=== PATIENT | male | born 1940 | race Caucasian/White ===

== ENCOUNTER 2016-05-29 08:38 | Day surgery (SDC) | payer MEDICARE ==
[~2016-05-29] VITALS: Ht 172.7 cm; Wt 72.7 kg
[~2016-05-29 08:38] MED LIST: AMIO200T PO; COMMODE 3-IN-11 MIS; COUM1TAB PO; CYCL1TAB29 PO; DOCU1CAP39 PO; LIDO5DIS35 TD; LIPI40TA PO; MEGE40SU PO; METO25TA3 PO; OXYC-392 PO; PANT40TA3 PO; POLY17S PO; SENN1TAB PO; TERA1CAP3 PO; THERM PO; WHEEMIS3; [UNRECOGNIZED DRUG - CODE]
[2016-05-29 08:54] VITALS: BP 152/77; PULSE 77; RESP 20; TEMP 98.2; O2SAT 93
[2016-05-29] MEDS ORDERED: SODIUM CHLORIDE 0.9% 1000 ML IV SCH (09:15)
[2016-05-29] MEDS ORDERED: LEVOFLOXACIN 500 MG PREMIX 100 ML - biliary drainage catheter/stent insertion IV SCH (09:15)
[2016-05-29 10:30] VITALS: BP 139/75; PULSE 76; RESP 16; TEMP 98.7; O2SAT 96
--- NOTE | 2016-05-29 10:43 | PD.RAD ---
Post Procedure Progress Note Pre Procedure Diagnosis: (1) Cholecystostomy tube dysfunction Post Procedure Diagnosis: (1) Cholecystostomy tube dysfunction Procedure Date: May 29, 2016 Supervising Radiologist: Kobi Su Proceduralist/Assist: Mena Medeiros, RT(R), Rose Carpenter RT(R)() Anesthesia: Local Plan of Activity Patient to Unit: [facility] Patient Condition: Fair See PACS Report for procedural detail/treatment Imaging Evaluation Other Findings: Cholecystostomy catheter evaluated. Contrast opacifies an irregular contracted GB. Pericholecystic leakage on contrast occurred. No flow into cystic duct. Treatment Area: Dr. Ordoñez notified. Antibiotics will be called in for patient. Kobi Su MD May 29, 2016 10:43
[2016-05-29 10:45] VITALS: BP 135/72; PULSE 75; RESP 16; O2SAT 96
[2016-05-29] MEDS ORDERED: IOHEXOL 350 MG/ML 50 ML BTL (for RAD DIAG) ONE (10:52)
[2016-05-29 11:15] VITALS: BP 143/76; PULSE 75; RESP 16; O2SAT 96
[2016-05-29 11:45] VITALS: BP 151/81; PULSE 72; RESP 16; O2SAT 96
--- NOTE | 2016-05-29 13:30 | RADRPT ---
EXAM DATE/TIME: 05/29/2016 09:57 [place] COMPARISON: No previous studies available for comparison. INDICATIONS : Patient with cholecystitis in need of evaluation and possible change of a cholecystostomy tube. MEDICAL HISTORY : History of bladder stones, renal stones, groin mass, anemia, thrombocytopenia, CAD, gout, DVT, PE, HT N, AFIB, hyperlipidemia, GERD. SURGICAL HISTORY : History of IVC filter placement, CABG, aortic valve replacement, right knee replacement, left hip bon e spur removal, duodenal pump removal. ENCOUNTER: Subsequent ACUITY: 3 months PAIN SCORE: 0/10 FLUORO TIME: 4.1 minutes CONTRAST: 15 cc Omnipaque (iohexol) 350 DEVICE: 1.) 7 [place] 20cm Skater locking pigtail PROCEDURE : 1. Fluoroscopically guided tube exchange. 2. Conscious sedation with continuous EKG and oximetry monitoring. The risks, benefits and alternatives to the procedure were explained and verbal and written consent w as obtained. The site was prepped in sterile fashion. Full sterile technique was used, including ca p, mask, sterile gloves and gown and a large sterile sheet. Hand hygiene and 2% chlorhexidine and/or betadine/alcohol prep was utilized per protocol for cutaneous antisepsis. An existing cholecystostomy tube was evaluated with contrast injection. Contrast penetrates a contrac kehinde gallbladder with a markedly irregular wall. The pigtail was coiled in the fundus of the gallbladd er. Additional administration of contrast in attempt to fill the cystic duct resulted in leakage of c ontrast on the gallbladder. Exam was terminated at that point. With fluoroscopic guidance the previously placed tube was exchanged for a new catheter catheter. Pos t procedure image demonstrates satisfactory position of the tube. The catheter was sutured in place and a Percu-Stay was applied. Conscious sedation was performed with the prescribed dosages and duration as above. The patient tole rated the procedure well and there were no complications. EKG and oximetry remained stable throughou t the procedure. The patient was sent to post anesthesia recovery in stable condition. CONCLUSION: Patency of cystic duct could not be confirmed. Contracted markedly irregular gallbladder. Uncomplicated tube exchange as above. Kobi Su MD on May 29, 2016 at 13:23 Board Certified Radiologist. This report was verified electronically.
== END 2016-05-29 12:30 | disposition home or self-care (01) ==
LOC: HROP 08:38 → HRIP 08:38 → HROP 12:30
PROVIDERS: ATTEND Surgery Trauma Surgery
DX: T83.030A Leakage of cystostomy catheter, initial encounter (principal); K81.9 Cholecystitis, unspecified; K21.9 Gastro-esophageal reflux disease without esophagitis; I25.10 Atherosclerotic heart disease of native coronary artery without angina pectoris; I10 Essential (primary) hypertension; M10.9 Gout, unspecified; I48.91 Unspecified atrial fibrillation; Z87.442 Personal history of urinary calculi; Z86.718 Personal history of other venous thrombosis and embolism; Z95.1 Presence of aortocoronary bypass graft
CPT/HCPCS: 49423; 75984; 75989; C1729; C1769; Q9967

== ENCOUNTER 2016-06-22 06:06 | Observation (INO) | payer MEDICARE ==
[~2016-06-22] VITALS: Ht 172.7 cm; Wt 75.9 kg
[~2016-06-22 06:06] MED LIST changes: -CYCL1TAB29 PO; -LIDO5DIS35 TD; -MEGE40SU PO; -OXYC-392 PO
[2016-06-22] MEDS ORDERED: ACETAMINOPHEN 1000 MG/100 ML VIAL IV SCH (06:45)
[2016-06-22] MEDS ORDERED: METOPROLOL TARTRATE 25 MG TAB PO PRN (06:45)
[2016-06-22] MEDS ORDERED: INSULIN HUMAN REGULAR 1,000 UNITS/10 ML VIAL SQ PRN (06:45)
[2016-06-22] MEDS ORDERED: LACTATED RINGER'S 1000 ML IV SCH (06:45)
[2016-06-22] MEDS ORDERED: VANCOMYCIN HCL 1000 MG ON-CALL/NS 250 ML IV SCH ×2 (06:45)
[2016-06-22] MEDS ORDERED: SODIUM CHLORID 0.9% 500 ML IV SCH (06:45)
[2016-06-22] MEDS ORDERED: ACET1CAP18 PO (07:20)
[2016-06-22] MEDS ORDERED: OCUVTAB PO (07:20)
[2016-06-22] MEDS ORDERED: BUPIVACAINE/EPINEPHRINE 0.25% PF 30 ML VIAL ONE (07:24)
[2016-06-22] MEDS ORDERED: CYCL1TAB29 PO (07:25)
[2016-06-22 07:33] VITALS: BP 167/91; PULSE 79; RESP 22; TEMP 97.6; O2SAT 100
[2016-06-22 07:49] LABS: BICARBONATE 25.6 MEQ/L (21.0-32.0)
[2016-06-22 07:52] LABS: INDIRECT BILIRUBIN 0.3 MG/DL (0.0-0.8); TOTAL BILIRUBIN ADULT 0.4 MG/DL (0.2-1.0)
[2016-06-22] MEDS ORDERED: FAMOTIDINE 20 MG/2 ML VIAL ONE (08:07)
[2016-06-22] MEDS ORDERED: fentaNYL CITRATE 250 MCG/5 ML AMP ONE (08:08)
[2016-06-22] MEDS ORDERED: MIDAZOLAM HCL 2 MG/2 ML VIAL ONE (08:08)
[2016-06-22] MEDS ORDERED: ONDANSETRON HCL 4 MG/2 ML VIAL ONE (08:08)
[2016-06-22] MEDS ORDERED: LEVOFLOXACIN 500 MG PREMIX INJ 100 ML IV ONE (08:55)
[2016-06-22] MEDS ORDERED: NEOMYCIN/POLYMYXIN/BACITRACIN OINT 15 GM TUBE ONE (10:53)
--- NOTE | 2016-06-22 11:08 | HHI.PR ---
cc: Tony Ordoñez MD Immediate Post Op Note Procedure Date: Jun 22, 2016 Pre Op Diagnosis: Acute cholecystitis with previous cholangitis Post Op Diagnosis: Same Surgeon: Tony Ordoñez Suit Attendant(s): Bertin Matthews MS3 Procedure: Laparoscopic lysis of adhesions Laparoscopic cholecystectomy Primary repair umbilical hernia Findings: Adhesions from previous surgery Complications: None Specimen(s) removed: Gallbladder to pathology Estimated blood loss: 75 ml Anesthesia: General Drains: None IVF (750 ml) Patient to: PACU Patient Condition: Good Date/Time of Procedure: SEE SURGICAL CARE RECORD Tony Ordoñez MD Jun 22, 2016 11:08
[2016-06-22] MEDS ORDERED: HYDR-3288 PO (11:12)
[2016-06-22] MEDS ORDERED: *morphine SULFATE 8 MG/ML PERIprocedure ONLY ONE ×2 (11:17→11:37)
[2016-06-22] MEDS ORDERED: DEXTROSE 50% IN WATER 50 ML VIAL(D50) IV PUSH PRN (11:30)
[2016-06-22] MEDS ORDERED: GLUCAGON 1 MG/ML VIAL OTHER PRN (11:30)
[2016-06-22] MEDS ORDERED: INSULIN ASPART SUPPLEMENTAL SCALE ONE (11:40)
[2016-06-22] MEDS: LACTATED RINGER'S 1000 ML IV SCH ×2 (12:15→21:32)
[2016-06-22] MEDS ORDERED: DO NOT ADM ANY ANTICOAGULANT DRUGS XX PRN (12:15)
[2016-06-22] MEDS ORDERED: ONDANSETRON HCL 4 MG/2 ML VIAL IV PUSH PRN (12:45)
[2016-06-22] MEDS ORDERED: MORPHINE SULFATE 4 MG/ML INJ IV PRN (12:45)
[2016-06-22] MEDS ORDERED: ACETAMINOPHEN/HYDROcodone 325 MG/7.5 MG TAB PO PRN (12:45)
[2016-06-22] MEDS ORDERED: PHENYLEPH/NS 1000 MCG/10 ML SYR IV ONE (15:09)
[2016-06-22] MEDS ORDERED: NEOSTIGMINE 3 MG/3 ML SYR IV ONE (15:09)
[2016-06-22] MEDS ORDERED: ePHEDrine/NS 25 MG/5 ML SYR IV ONE (15:09)
[2016-06-22] MEDS ORDERED: PROPOFOL 200 MG/20 ML AMP IV ONE (15:09)
[2016-06-22 16:00] VITALS: BP 149/74; PULSE 88; RESP 17; TEMP 95.1; O2SAT 95
[2016-06-22] MEDS ORDERED: INSULIN ASPART SUPPLEMENTAL SCALE SQ SCH (16:00)
[2016-06-22 20:00] VITALS: BP 166/80; PULSE 81; RESP 17; TEMP 96.4; O2SAT 98
[2016-06-22] MEDS ORDERED: TERAZOSIN HCL 1 MG CAP PO SCH (21:00)
[2016-06-22] MEDS ORDERED: DOCUSATE SODIUM 50 MG/SENNA 8.6 MG TAB PO SCH (21:00)
[2016-06-22] MEDS ORDERED: ATORVASTATIN 40 MG TAB PO SCH (21:00)
[2016-06-22] MEDS ORDERED: CYCLOBENZAPRINE HCL 10 MG TAB PO SCH (21:00)
[2016-06-22] MEDS: PANTOPRAZOLE SOD 40 MG DELAYED RELEASE TAB PO SCH (21:26)
[2016-06-22] MEDS: METOPROLOL TARTRATE 25 MG TAB PO SCH (21:26)
[2016-06-22] MEDS: ENOXAPARIN SODIUM 80 MG/0.8 ML SYRINGE SQ SCH (21:26)
[2016-06-22] MEDS: ACETAMINOPHEN/HYDROcodone 325 MG/7.5 MG TAB PO PRN (22:53)
[2016-06-23] VITALS: BP 139/72; PULSE 74; RESP 17; TEMP 97.8; O2SAT 97
[2016-06-23] MEDS: ACETAMINOPHEN/HYDROcodone 325 MG/7.5 MG TAB PO PRN ×2 (06:12→13:31)
[2016-06-23 08:00] VITALS: BP 143/67; PULSE 60; RESP 18; TEMP 97; O2SAT 91
[2016-06-23] MEDS: PANTOPRAZOLE SOD 40 MG DELAYED RELEASE TAB PO SCH (08:43)
[2016-06-23] MEDS: ENOXAPARIN SODIUM 80 MG/0.8 ML SYRINGE SQ SCH (08:43)
[2016-06-23] MEDS: METOPROLOL TARTRATE 25 MG TAB PO SCH (08:43)
[2016-06-23] MEDS ORDERED: MULTIVITAMINS/MINERALS THERAPEUTIC TAB PO SCH (09:00)
[2016-06-23] MEDS ORDERED: MULTIVITAMIN-OPHTHALMIC 1 TAB PO SCH (09:00)
[2016-06-23] MEDS ORDERED: DOCUSATE SODIUM 100 MG CAP PO SCH (09:00)
[2016-06-23] MEDS ORDERED: POLYETHYLENE GLYCOL 17 GM PKG PO SCH (09:00)
--- NOTE | 2016-06-23 11:15 | HHI.DS ---
Discharge Summary Admission Date Jun 22, 2016 at 12:56 Admitting Diagnosis Brief History Patient admitted for lap cholecystectomy after cholecystostomy tube placed for cholangitis CBC/BMP: 06/22/16 0704 Significant Findings Laboratory Tests Test 06/22/16 07:04 Blood Urea Nitrogen 21 MG/DL (7-18) Estimat Glomerular Filtration 65 ML/MIN (>89) Rate Aspartate Amino Transf 39 U/L (15-37) (AST/SGOT) Hospital Course Minimal pain after surgery; tolerating diet Steristrips with minimal drainage Pt Condition on Discharge: Good Discharge Disposition: Discharge Home Discharge Instructions DIET: Follow Instructions for: Heart Healthy Diet Activities you can perform: Shower Only-No Bath Activities to Avoid: Strenuous Activity Tony Ordoñez MD Jun 23, 2016 11:15
[2016-06-23] MEDS ORDERED: ENOX40P SQ (11:23)
--- NOTE | 2016-06-23 13:22 | MP ---
cc: MARITZA DELGADO M.D.,IGOR KIRKPATRICK MD,TARA Banda MD DATE OF SURGERY 06/22/2016 PROCEDURE 1. Laparoscopic lysis of adhesions. 2. Laparoscopic cholecystectomy. 3. Primary umbilical hernia repair. PREOPERATIVE DIAGNOSES 1. Acute cholecystitis with previous cholangitis. 2. Previous surgical procedures with adhesions from surgery. 3. Reducible umbilical hernia. ANESTHESIA General endotracheal. SURGEON MD Tiago SLOTS MANAGER Sid Matthews, 3. ESTIMATED BLOOD LOSS 75 mL. FLUIDS 750 mL crystalloid. COMPLICATIONS None. DRAINS None. SPECIMEN Gallbladder and stones to pathology. PROCEDURE IN DETAIL The patient was taken to the operating room and placed on the operating table in the supine position. After an adequate level of general endotracheal anesthesia was achieved, the abdomen was shaved, prepped and draped with the drainage catheter prepped as well. Time-out was taken confirming the correct patient site and procedure to be performed. The skin and subcutaneous tissue was infiltrated with local anesthetic and incision made in the umbilicus. The peritoneal cavity was directly visualized. A 12-mm balloon trocar was inserted and the balloon inflated. The patient was placed in reverse Trendelenburg position and the abdomen insufflated. Two 5-mm trocars were placed in the right upper quadrant where there were no adhesions noted. When these had been placed, adhesions were taken down with a loop of colon that had attached to the anterior abdominal wall. This was taken down with mostly sharp dissection and minimal use of electrocautery. The colon was not plastered to the anterior abdominal wall, but simply mesentery and loose scar tissue. When this had been taken down, dissection was carried out slightly medially as well, creating a large opening for the work to be performed. The drainage catheter was seen to be coursing into the gallbladder. At this point a third 5-mm trocar was placed to the right of the falciform ligament and entered the abdominal cavity under direct vision uneventfully as well. At this point the tissue around the catheter was dissected with both electrocautery and sharp dissection. At this point the catheter was unhooked from the hub and withdrawn from the patient and passed off the table. The drainage site was then used as a grasping point and this was retracted upward. Fatty tissue around the gallbladder and on the liver was taken down with both blunt dissection and electrodissection. No loops of bowel or seen up close to the gallbladder. Further dissection was carried out inferiorly and this was performed mostly bluntly to dissect bowel and what appeared to be duodenum off of the inferior portion of the gallbladder and cystic duct. When these had been reduced, and these adhesions had been taken down, the gallbladder was retracted further up and over the dome of the liver. The cystic duct infundibular junction and cystic artery were both circumferentially dissected. The cystic artery was grasped and then doubly clipped proximally, singly clipped on the gallbladder side and divided. Further dissection was accomplished on the cystic duct. A fair amount of scar tissue was around the cystic duct. This was then doubly clipped distally and singly clipped proximally. The cystic duct was then divided and further secured with a 0-PDS Endoloop as the clips appeared to be nearly all the way across, but there was some concern about security of the cystic duct stump. When this had been secured down more distal to the two hemoclips, the gallbladder was dissected off of the liver bed with electrodissection. The gallbladder was then placed into an EndoCatch device and removed via the umbilical port while observing via the upper 5-mm trocar site. The specimen was passed off the table. The camera was once again switched to the umbilical port and the upper abdomen visualized. Small bleeding points on the liver were controlled with electrocautery. All irrigation was aspirated. One gram of Matt powder was then placed into the liver fossa and near the area of dissection down near the stomach and duodenum. These all appeared intact. When this had been completed, no bleeding was noted through the Matt powder. The cystic artery stump and cystic duct stump were both seen to be clean and dry. At this point insufflation was discontinued and the upper abdominal trocars removed under direct vision. No bleeding was noted from the trocar sites. The laparoscope and umbilical port were then removed. The fascia was closed in the umbilicus with interrupted 0 Vicryl suture. The preperitoneal fat was reduced first off of the fascia to allow for easier closure of the defect. When this had been completed, the remaining local anesthetic was injected into all of the trocar sites. The skin was closed at each site with 4-0 Vicryl in an interrupted buried fashion. The skin was dressed with Steri-Strips, the patient was extubated and taken back to the recovery room in stable condition. Sponge and needle counts were reported be correct. The patient tolerated the procedure well. MD BISHOP Jaramillo/SSB /11:31 AM /1:12 PM
[2016-06-23] MEDS: LACTATED RINGER'S 1000 ML IV SCH (14:55)
[2016-06-23] MEDS ORDERED: WARFARIN SOD 1 MG TAB PO SCH (16:00)
== END 2016-06-23 17:22 | disposition home or self-care (01) ==
LOC: HSDC 06:06 → N07A 12:56
PROVIDERS: ADMIT Surgery Trauma Surgery; ATTEND Surgery Trauma Surgery
DX: K80.10 Calculus of gallbladder with chronic cholecystitis without obstruction (principal); K42.9 Umbilical hernia without obstruction or gangrene
CPT/HCPCS: 00790; 47562; 49585; 80048; 80076; 85610; 88304; G0378; J0131; J1650; J1815; J1956; J2250; J2270; J2370; J2405; J2710; J3010; J3370; J7050; J7120

== ENCOUNTER → 2017-04-23 | Day surgery (SDC) | payer MEDICARE ==
[~2017-04-23] VITALS: Ht 172.7 cm; Wt 79.8 kg
[~2017-04-23] MED LIST changes: +ACETAMINOPHEN 1000 MG/100 ML 0 ML IV ONE; +ACETAMINOPHEN 1000 MG/100 ML 100 ML IV SCH; +ACETAMINOPHEN/HYDROcodone 325 MG/5 MG TAB PO PRN; -AMIO200T PO; +BUPIVACAINE/EPINEPHRINE 0.25% PF 30 ML VIAL ONE; +CHLORHEXIDINE GLUCONATE 2 % 1 PACK (2 CLOTHS) TOPICAL PRN; -COMMODE 3-IN-11 MIS; +CYCL10TA PO; +DEXAMETHASONE SOD PHOS 4 MG/ML VIAL IV ONE; +DO NOT ADM ANY ANTICOAGULANT DRUGS PRN; -DOCU1CAP39 PO; +ENOX40P SQ; +GLYCOPYRROLATE 0.2 MG/ML VIAL ONE; +GLYCOPYRROLATE 1 MG/5 ML SYRINGE IV PUSH ONE; +HYDR-3288 PO; +INSULIN HUMAN REGULAR 1,000 UNITS/10 ML VIAL SQ PRN; +LABETALOL HCL 100 MG/20 ML VIAL IV ONE; +LACTATED RINGER'S 1000 ML IV PRN; +LIDOCAINE HCL 1% PF 5 ML SYRINGE OTHER ONE; -LIPI40TA PO; +MAPA325T PO; -METO25TA3 PO; +METOPROLOL TARTRATE 25 MG TAB PO PRN; +MORPHINE SULFATE 4 MG/ML INJ IV PRN; +NEOSTIGMINE 5 MG/5 ML SYRINGE IV PUSH ONE; +NORC5TAB PO; +OCUVTAB PO; +ONDANSETRON HCL 4 MG/2 ML VIAL IV PUSH ONE; +ONDANSETRON HCL 4 MG/2 ML VIAL IV PUSH PRN; -POLY17S PO; +POVIDONE IODINE 5% (ANTISEPSIS KIT) 4 APPLICATIONS EACH NARE PRN; +PROPOFOL 200 MG/20 ML AMP IV ONE; +ROCURONIUM INJ 50 MG/5 ML SYRINGE IV PUSH ONE; +SODIUM CHLORID 0.9% 500 ML IV PRN; +TAMS0.4C4 PO; -TERA1CAP3 PO; +VANCOMYCIN HCL 1000 MG ON-CALL/NS 250 ML IV SCH; -WHEEMIS3; -[UNRECOGNIZED DRUG - CODE]; +ePHEDrine/NS 25 MG/5 ML SYR IV ONE
[2017-04-23 06:53] LABS: AUTOMATED NEUTROPHIL # 4.5 TH/MM3 (1.8-7.7); BASOPHIL % 0.4 % (0.0-2.0); EOSINOPHIL # 0.2 TH/MM3 (0-0.4); HEMATOCRIT 37.9 % (39.0-51.0); LYMPH % 27.5 % (9.0-44.0); MEAN CELL VOLUME 88.7 FL (80.0-100.0); MEAN CORPUSCULAR HEMOGLOBIN 29.3 PG (27.0-34.0); MONO % 9.1 % (0.0-8.0); PLATELET COUNT 78 TH/MM3 (150-450); RED BLOOD COUNT 4.28 MIL/MM3 (4.50-5.90); WHITE BLOOD COUNT 7.4 TH/MM3 (4.0-11.0)
[2017-04-23 06:54] LABS: HEMO FLAGS AUTO DIFF
[2017-04-23 07:12] LABS: BICARBONATE 29.4 MEQ/L (21.0-32.0); POTASSIUM 3.8 MEQ/L (3.5-5.1)
[2017-04-23 07:37] LABS: PLATELET ESTIMATE SMEAR LOW (NORMAL); PLATELET MORPHOLOGY ENLARGED (NORMAL)
[2017-04-23 07:38] LABS: SCAN/DIFF AUTO DIFF CONFIRMED
--- NOTE | 2017-04-23 07:49 | EKG ---
Date Performed: 04/23/2017 Time Performed: 06:50:34 PTAGE: 76 years EKG: SINUS BRADYCARDIA INTRAVENTRICULAR CONDUCTION DELAY LEFT VENTRICULAR HYPERTROPHY AND ST-T C HANGE ABNORMAL ECG No significant change from prior electrocardiogram. PREVIOUS TRACING : 03/31/2016 15.28 DOCTOR: Edgardo Louis Interpretating Date/Time 04/23/2017 07:48:11
[2017-04-23 08:13] LABS: APTT (PATIENT) 26.8 SEC (24.3-30.1); INTERNATIONAL NORMALIZED RATIO 1.1 RATIO; PROTHROMBIN TIME - PATIENT 11.2 SEC (9.8-11.6)
--- NOTE | 2017-04-23 09:45 | HHI.PR ---
cc: Tony Ordoñez MD Immediate Post Op Note Procedure Date: Apr 23, 2017 Pre Op Diagnosis: Incisional hernia, reducible Post Op Diagnosis: Same Surgeon: Tony Ordoñez Pl Sql Developer(s): Perlita Velez CFA Procedure: Incisional hernia repair with mesh Complications: None Specimen(s) removed: None Estimated blood loss: 10 ml Anesthesia: General Drains: None IVF (750 ml) Patient to: PACU Patient Condition: Good Date/Time of Procedure: SEE SURGICAL CARE RECORD Tony Ordoñez MD Apr 23, 2017 09:45
[2017-04-23 11:15] VITALS: BP 192/80; PULSE 52; RESP 18; TEMP 97.5; O2SAT 99
--- NOTE | 2017-04-24 10:49 | MP ---
cc: MARITZA DELGADO M.D. DATE OF SURGERY: 04/23/2017 PROCEDURE Incisional hernia repair with mesh in the umbilicus. PREOPERATIVE DIAGNOSIS Incisional hernia, reducible. POSTOPERATIVE DIAGNOSIS Incisional hernia, reducible. ANESTHESIA General endotracheal SURGEON Tiago ESTIMATED BLOOD LOSS 10 mls. FLUIDS: 750 mls crystalloid COMPLICATIONS None. DRAINS: Drains none SPECIMEN None PROCEDURE IN DETAIL The patient was taken to the operating room and placed on the operating table in the supine position. After an adequate level of general endotracheal anesthesia was achieved the abdomen was prepped and draped in usual fashion. Time-out was taken confirming the correct patient site and procedure to be performed. Skin and subcutaneous tissue was infiltrated with local anesthetic and a transverse incision made up under the umbilicus. Dissection was carried down around the umbilical skin which was cut away from the hernia sac. The hernia was seen to be approximately 2-3 cm in size and no intra-abdominal contents were incarcerated in the hernia sac. The umbilical skin was totally dissected away and the fascial edges were then freshened up. A 8 cm piece of Ventralex ST mesh was brought up and placed into the defect in the subfascial level. The mesh was fixed at multiple points with zero Prolene suture. When this was completed the fascia was closed over the mesh with #1 Prolene suture in a simple interrupted longitudinal fashion. When this was completed the umbilical skin was tacked down with 3-0 Vicryl to the fascia and the wound closed with interrupted 3-0 Vicryl suture after injecting the remaining local anesthetic into the periumbilical fascia. The skin was closed with 5-0 PDS suture in the wound dressed with 4x4 and Tegaderm. The patient was extubated after placing an abdominal binder and was then taken back to the recovery room in stable condition. Sponge, needle and instrument counts were reported be correct. The patient tolerated the procedure well. MD BISHOP Jaramillo/federica /3:28 PM /10:42 AM [facility]
== END | disposition home or self-care (01) ==
LOC: HSDC 05:49
PROVIDERS: ATTEND Surgery Trauma Surgery
DX: K43.2 Incisional hernia without obstruction or gangrene (principal); I10 Essential (primary) hypertension; R00.1 Bradycardia, unspecified; R07.9 Chest pain, unspecified; Z86.718 Personal history of other venous thrombosis and embolism; Z95.1 Presence of aortocoronary bypass graft; Z01.810 Encounter for preprocedural cardiovascular examination
CPT/HCPCS: 00832; 49560; 49568; 80048; 85025; 85610; 85730; 86850; 86900; 86901; 93005; C1781; J0131; J3370; J7050; J7120; J1100; J2405; J2710; J3010

== ENCOUNTER 2017-04-29 09:31 | Inpatient (IN) | payer MEDICARE ==
[2017-04-29] VITALS (8 sets, daily range): BP systolic 125–180; BP diastolic 61–81; PULSE 58–84; RESP 15–18; TEMP 98–99.9; O2SAT 95–99
[~2017-04-29] VITALS: Ht 172.7 cm; Wt 80.0 kg
[~2017-04-29 09:31] MED LIST changes: -ACETAMINOPHEN 1000 MG/100 ML 0 ML IV ONE; -ACETAMINOPHEN 1000 MG/100 ML 100 ML IV SCH; -ACETAMINOPHEN/HYDROcodone 325 MG/5 MG TAB PO PRN; -BUPIVACAINE/EPINEPHRINE 0.25% PF 30 ML VIAL ONE; -CHLORHEXIDINE GLUCONATE 2 % 1 PACK (2 CLOTHS) TOPICAL PRN; -CYCL10TA PO; -DEXAMETHASONE SOD PHOS 4 MG/ML VIAL IV ONE; -DO NOT ADM ANY ANTICOAGULANT DRUGS PRN; -GLYCOPYRROLATE 0.2 MG/ML VIAL ONE; -GLYCOPYRROLATE 1 MG/5 ML SYRINGE IV PUSH ONE; -HYDR-3288 PO; -INSULIN HUMAN REGULAR 1,000 UNITS/10 ML VIAL SQ PRN; -LABETALOL HCL 100 MG/20 ML VIAL IV ONE; -LACTATED RINGER'S 1000 ML IV PRN; -LIDOCAINE HCL 1% PF 5 ML SYRINGE OTHER ONE; -METOPROLOL TARTRATE 25 MG TAB PO PRN; -MORPHINE SULFATE 4 MG/ML INJ IV PRN; -NEOSTIGMINE 5 MG/5 ML SYRINGE IV PUSH ONE; -OCUVTAB PO; -ONDANSETRON HCL 4 MG/2 ML VIAL IV PUSH ONE; -ONDANSETRON HCL 4 MG/2 ML VIAL IV PUSH PRN; -POVIDONE IODINE 5% (ANTISEPSIS KIT) 4 APPLICATIONS EACH NARE PRN; -PROPOFOL 200 MG/20 ML AMP IV ONE; -ROCURONIUM INJ 50 MG/5 ML SYRINGE IV PUSH ONE; -SODIUM CHLORID 0.9% 500 ML IV PRN; -VANCOMYCIN HCL 1000 MG ON-CALL/NS 250 ML IV SCH; -ePHEDrine/NS 25 MG/5 ML SYR IV ONE
[2017-04-29] MEDS ORDERED: IODIXANOL 320 MG/ML 10 ML VIAL (for Rad CT) IVCONTRAST ONE (09:32)
[2017-04-29] MEDS ORDERED: SODIUM CHLOR 0.9% 1000 ML INJ 1,000 ML IV SCH (10:37)
[2017-04-29] MEDS ORDERED: MORPHINE SULFATE 4 MG/ML INJ IV PUSH ONE (10:45)
[2017-04-29] MEDS ORDERED: SODIUM CHLORIDE 0.9% FLUSH 10 ML FLUSH IV FLUSH PRN ×2 (10:45→15:45)
[2017-04-29] MEDS ORDERED: FAMOTIDINE 20 MG/2 ML VIAL IV PUSH ONE (10:45)
[2017-04-29] MEDS ORDERED: ONDANSETRON HCL 4 MG/2 ML VIAL IVP ONE (10:45)
--- NOTE | 2017-04-29 10:49 | PD ---
HPI Chief Complaint: Pain: Acute or Chronic Time Seen by Provider: 10:16 Travel History International Travel<30 days: No Contact w/Intl Traveler<30days: No Traveled to known affect area: No History of Present Illness HPI 76-year-old male complains abdominal pain and decreasing urine output, urinary frequency. Patient status post incisional hernia repair 6 days ago. Patient states that he has history of BPH and has problem with urinating in the past. Patient has been seen by Dr. Michelle, urologist. Patient has been taking tamsulosin. Patient states that the urinary problem got worse since surgery. Patient complaining of increased abdominal pain and abdominal distention since surgery. Patient states the pain is sharp pain in cramping pain localized to lower abdomen. Patient denies any pain radiation. Patient denies any fever chills. Patient denies any nausea vomiting diarrhea. Patient has history of ITP, gouty arthritis, bradycardia, GERD, hyperlipidemia, depression, hypertension, kidney stone, PE 2 on Coumadin. Patient also has history of CAD status post CABG and aortic valve replacement in the past. Patient status post gastric resection, cholecystectomy and IVC filter placement and cystic duct drainage. PFSH Past Medical History Arthritis: Yes (gout) Asthma: No Autoimmune Disease: Yes (ITP) Anxiety: No Depression: Yes Heart Rhythm Problems: Yes (Bradycardia) Cancer: No Cardiovascular Problems: Yes (CAD, aortic stenosis) High Cholesterol: Yes Chemotherapy: No Chest Pain: Yes Congestive Heart Failure: No COPD: No Cerebrovascular Accident: No Diabetes: No Endocrine: No Gastrointestinal Disorders: Yes (GERD, UMBILICAL HERNIA) GERD: Yes Genitourinary: Yes (urgency incontinence) Hepatitis: No Hiatal Hernia: Yes Hypertension: Yes Immune Disorder: Yes Implanted Vascular Access Dvce: Yes Kidney Stones: Yes Musculoskeletal: Yes (OA) Neurologic: Yes (DDD) Psychiatric: No Reproductive: No Respiratory: Yes (PE X2) Migraines: No Radiation Therapy: No Renal Failure: No Seizures: No Sickle Cell Disease: No Sleep Apnea: No Thyroid Disease: No Ulcer: Yes Tetanus Vaccination: < 5 Years Influenza Vaccination: Yes Past Surgical History Abdominal Surgery: Yes (gastric resection, hernia repair 2016) AICD: No Arteriovenous Shunt: No Body Medical Devices: IVC Filter, CYSTIC DUCT DRAIN Cardiac Surgery: Yes (CABG 4 and aortic valve replacement) Cholecystectomy: Yes Coronary Artery Bypass Graft: Yes Ear Surgery: No Endocrine Surgery: No Eye Surgery: Yes (bilateral cataract removal) Genitourinary Surgery: No Gynecologic Surgery: No Insulin Pump: No Joint Replacement: Yes (Right knee right TKA) Oral Surgery: No Pacemaker: No Thoracic Surgery: No Social History Alcohol Use: No Tobacco Use: No Substance Use: No Allergies-Medications (Allergen,Severity, Reaction): Coded Allergies: penicillin G (Verified Allergy, Severe, 04/29/17) aspirin (Verified Allergy, Intermediate, 04/29/17) Patient states that Aspirin causes him to have bleeding ulcers metoclopramide (Verified Allergy, Intermediate, 04/29/17) rosuvastatin (Verified Allergy, Intermediate, 04/29/17) Reported Meds & Prescriptions Reported Meds & Active Scripts Active [place] (Hydrocodone-Acetaminophen) 5 Mg-325 Mg Tab 1-2 Tab PO Q4H PRN Lovenox Inj (Enoxaparin Sodium) 40 Mg/0.4 Ml Syr 40 Mg SQ BID Coumadin (Warfarin) 1 Mg Tab 1.5 Mg PO DAILY Senna Plus 8.6-50 mg (Sennosides-Docusate Sodium) 1 Tab Tab 1 Tab PO HS Pantoprazole (Pantoprazole Sodium) 40 Mg Tab 40 Mg PO Q12HR Thera M Plus (Multivitamins/Minerals Therapeutic) 1 Tab 1 Tab PO DAILY Reported Tamsulosin (Tamsulosin HCl) 0.4 Mg Cap 0.4 Mg PO HS [place] (Acetaminophen) 325 Mg Tab 325 Mg PO Q4-6H PRN Review of Systems General / Constitutional: No: Fever Eyes: No: Visual changes HENT: No: Headaches Cardiovascular: No: Chest Pain or Discomfort Respiratory: No: Shortness of Breath Gastrointestinal: Positive: Abdominal Pain Genitourinary: Positive: Decreased Urinary Output, No: Dysuria Musculoskeletal: No: Pain Skin: No Rash Neurologic: No: Weakness Psychiatric: No: Depression Endocrine: No: Polydipsia Hematologic/Lymphatic: No: Easy Bruising Physical Exam Narrative GENERAL: Well-nourished, well-developed patient. SKIN: Focused skin assessment warm/dry. HEAD: Normocephalic. EYES: No scleral icterus. No injection or drainage. NECK: Supple, trachea midline. No JVD or lymphadenopathy. CARDIOVASCULAR: Regular rate and rhythm without murmurs, gallops, or rubs. RESPIRATORY: Breath sounds equal bilaterally. No accessory muscle use. GASTROINTESTINAL: Abdomen soft, nondistended. MUSCULOSKELETAL: No cyanosis, or edema. BACK: Nontender without obvious deformity. No CVA tenderness. Neurologic exam normal. Data Data Last Documented VS Vital Signs Date Time Temp Pulse Resp B/P (MAP) Pulse Ox O2 Delivery O2 Flow Rate FiO2 04/29/17 13:23 84 16 174/81 (112) 96 Room Air 04/29/17 09:33 98.0 Orders Orders Complete Blood Count With Diff (04/29/17 10:37) Comprehensive Metabolic Panel (04/29/17 10:37) Lipase (04/29/17 10:37) Prothrombin Time / Inr (Pt) (04/29/17 10:37) Act Partial Throm Time (Ptt) (04/29/17 10:37) Urinalysis - C+S If Indicated (04/29/17 10:37) Ct Abd/Pel W Iv Contrast(Rout) (04/29/17 10:37) Iv Access Insert/Monitor (04/29/17 10:37) Ecg Monitoring (04/29/17 10:37) Oximetry (04/29/17 10:37) Morphine Inj (Morphine Inj) (04/29/17 10:45) Ondansetron Inj (Zofran Inj) (04/29/17 10:45) Sodium Chlor 0.9% 1000 Ml Inj (Ns 1000 M (04/29/17 10:37) Sodium Chloride 0.9% Flush (Ns Flush) (04/29/17 10:45) Famotidine Inj (Pepcid Inj) (04/29/17 10:45) Urinary Catheter Insert/Apply (04/29/17 10:40) Iodixanol 320 Inj (Rad Ct) (Visipaque 32 (04/29/17 09:32) Sodium Chlor 0.9% 1000 Ml Inj (Ns 1000 M (04/29/17 12:45) Consult Amauri Nfs (04/29/17 ) Vancomycin Inj (Vancomycin Inj) (04/29/17 13:15) Hydromorphone Pf Inj (Dilaudid Pf Inj) (04/29/17 13:15) Npo After Midnight W/ Po Meds (04/29/17 Lunch) ^ Other Nursing Orders (04/29/17 13:19) Admit Order (Ed Use Only) (04/29/17 13:22) Consult General Surgery (04/29/17 ) Labs Laboratory Tests Test 04/29/17 10:45 04/29/17 10:50 Urine Color YELLOW Urine Turbidity HAZY Urine pH 6.0 Urine Specific [place] 1.012 Urine Protein NEG mg/dL Urine Glucose (UA) NEG mg/dL Urine Ketones NEG mg/dL Urine Occult Blood MOD Urine Nitrite NEG Urine Bilirubin NEG Urine Urobilinogen LESS THAN 2.0 MG/DL Urine Leukocyte Esterase MOD Urine RBC 36 /hpf Urine WBC 5 /hpf Urine Squamous Epithelial Cells <1 /hpf Urine Amorphous Sediment FEW Urine Bacteria OCC /hpf Urine Mucus FEW /lpf Microscopic Urinalysis Comment CULT NOT INDICATED White Blood Count 12.8 TH/MM3 Red Blood Count 3.80 MIL/MM3 Hemoglobin 11.2 GM/DL Hematocrit 33.8 % Mean Corpuscular Volume 88.8 FL Mean Corpuscular Hemoglobin 29.3 PG Mean Corpuscular Hemoglobin Concent 33.0 % Red Cell Distribution Width 16.4 % Platelet Count 123 TH/MM3 Mean Platelet Volume 8.5 FL Neutrophils (%) (Auto) 84.6 % Lymphocytes (%) (Auto) 7.1 % Monocytes (%) (Auto) 6.9 % Eosinophils (%) (Auto) 1.2 % Basophils (%) (Auto) 0.2 % Neutrophils # (Auto) 10.9 TH/MM3 Lymphocytes # (Auto) 0.9 TH/MM3 Monocytes # (Auto) 0.9 TH/MM3 Eosinophils # (Auto) 0.1 TH/MM3 Basophils # (Auto) 0.0 TH/MM3 CBC Comment DIFF FINAL Differential Comment Prothrombin Time 15.0 SEC Prothromb Time International Ratio 1.5 RATIO Activated Partial Thromboplast Time 28.3 SEC Blood Urea Nitrogen 35 MG/DL Creatinine 1.82 MG/DL Random Glucose 117 MG/DL Total Protein 7.2 GM/DL Albumin 3.0 GM/DL Calcium Level 8.9 MG/DL Alkaline Phosphatase 76 U/L Aspartate Amino Transf (AST/SGOT) 14 U/L Alanine Aminotransferase (ALT/SGPT) 21 U/L Total Bilirubin 0.4 MG/DL Sodium Level 141 MEQ/L Potassium Level 4.9 MEQ/L Chloride Level 107 MEQ/L Carbon Dioxide Level 27.4 MEQ/L Anion Gap 7 MEQ/L Estimat Glomerular Filtration Rate 36 ML/MIN Lipase 132 U/L MDM Medical Decision Making Medical Screen Exam Complete: Yes Emergency Medical Condition: Yes Interpretation(s) 12:31 PM. CBC WBC 12.8. Hemoglobin 11.2 hematocrit 33.8. Platelet 123. 84 neutrophil. BUN 35. Creatinine 1.82. GFR 36. UA positive for 5 WBC and few bacteria. INR 1.5. Differential Diagnosis Differential diagnosis including cellulitis, hematoma, bowel obstruction, wound site infection, bowel obstruction, urinary retention. Narrative Course 76-year-old male complains of abdominal pain and decreased urine output. Status post incisional hernia repair 6 days ago. Normal saline solution 1 25 cc an hour. Morphine 2 mg IV. Zofran 4 mg IV. I spoke with Dr. Ordoñez. Advised antibiotic, nothing by mouth after midnight, hold Coumadin. Possible I& D of the hematoma in a.m. in the OR. Vancomycin 1 g IV given. Diagnosis Primary Impression: Abdominal wall hematoma Qualified Codes: S30.1XXA - Contusion of abdominal wall, initial encounter Additional Impressions: Urinary retention Anticoagulation goal of INR 1.5 to 2.5 Admitting Information Admitting Physician Requests: Admit Eliot Blackman MD Apr 29, 2017 10:49
[2017-04-29 11:27] LABS: AUTOMATED NEUTROPHIL # 10.9 TH/MM3 (1.8-7.7); BASOPHIL % 0.2 % (0.0-2.0); EOSINOPHIL # 0.1 TH/MM3 (0-0.4); EOSINOPHIL % 1.2 % (0.0-4.0); HEMATOCRIT 33.8 % (39.0-51.0); HEMO FLAGS DIFF FINAL; LYMPH % 7.1 % (9.0-44.0); LYMPHOCYTE # 0.9 TH/MM3 (1.0-4.8); MEAN CELL VOLUME 88.8 FL (80.0-100.0); MEAN CORPUSCULAR HEMOGLOBIN 29.3 PG (27.0-34.0); MONO % 6.9 % (0.0-8.0); NEUT % 84.6 % (16.0-70.0); PLATELET COUNT 123 TH/MM3 (150-450); RED CELL DISTRIBUTION WIDTH 16.4 % (11.6-17.2); WHITE BLOOD COUNT 12.8 TH/MM3 (4.0-11.0)
[2017-04-29 11:33] LABS: BACTERIA, URINE OCC /hpf; BLOOD, URINE MOD (NEG); COMMENT (UR) CULT NOT INDICATED; CULTURE IF INDICATED CULT NOT INDICATED; GLUCOSE,URINE NEG (NEG); KETONE, URINE NEG (NEG); MUCUS URINE FEW /lpf (OCC); NITRITE,URINE NEG (NEG); SQUAMOUS EPITHELIAL CELL URINE <1 /hpf (0-5); URINE COLOR YELLOW (YELLW/STRAW)
[2017-04-29 11:36] LABS: APTT (PATIENT) 28.3 SEC (24.3-30.1); INTERNATIONAL NORMALIZED RATIO 1.5 RATIO
[2017-04-29 11:47] LABS: ALT (GPT) 21 U/L (12-78); ANION GAP 7 MEQ/L (5-15); AST (GOT) 14 U/L (15-37); BICARBONATE 27.4 MEQ/L (21.0-32.0); BLOOD UREA NITROGEN 35 MG/DL (7-18); CHLORIDE 107 MEQ/L (98-107); GLOMERULAR FILTRATION RATE 36 ML/MIN (>89); POTASSIUM 4.9 MEQ/L (3.5-5.1); SODIUM (NA) 141 MEQ/L (136-145)
[2017-04-29 11:49] LABS: ALKALINE PHOSPHATASE 76 U/L (45-117); TOTAL BILIRUBIN ADULT 0.4 MG/DL (0.2-1.0)
--- NOTE | 2017-04-29 12:37 | RADRPT ---
EXAM DATE/TIME: 04/29/2017 12:06 [place] COMPARISON: CT ABDOMEN & PELVIS W CONTRAST, April 17, 2016, 18:44. INDICATIONS : Lower abdominal pain, difficulty urinating. IV CONTRAST: 42 cc Visipaque (iodixanol) IV ORAL CONTRAST: No oral contrast ingested. RADIATION DOSE: 9.80 CTDIvol (mGy) MEDICAL HISTORY : Ulcers. Hernia, hiatal. Hernia, umbilical.Kidney stones. SURGICAL HISTORY : Cholecystectomy. ENCOUNTER: Initial ACUITY: 1 day PAIN SCALE: 8/10 LOCATION: Bilateral lower quadrant TECHNIQUE: Volumetric scanning of the abdomen and pelvis was performed. Using automated exposure control and ad justment of the mA and/or kV according to patient size, radiation dose was kept as low as reasonably achievable to obtain optimal diagnostic quality images. DICOM format image data is available electro nically for review and comparison. FINDINGS: There is marked distention of urinary bladder suggestive of bladder outlet obstruction. The prostate gland is enlarged. Mild bilateral hydronephrosis is noted also suggestive of bladder outlet obstructi on. There is a tiny calcification within the posterior aspect of the urinary bladder measuring 8 mm c onsistent with bladder calculus. Tiny calcified nonobstructing renal calculi are noted with the large st on the left measuring 4 mm in the upper pole. Multiple bilateral renal cysts are noted. There is a midline ventral abdominal wall collection which likely represents subcutaneous hematoma which measur es 7.7 x 4.3 x 8.3 cm. A tiny air bubble is noted within this collection which raise the possibility of developing infection. Clinical correlation is recommended. Evaluation of the solid organs of the abdomen is limited by the lack of intravenous contrast. The pat ient is status post cholecystectomy. Uncomplicated colonic diverticulosis is noted. No acute divertic ulitis is noted. No bowel obstruction is noted. Degenerative changes and scoliosis of the thoracolumb ar spine are noted. Inferior vena cava filter is noted. The lung bases are clear. CONCLUSION: 1. Marked distention of the urinary bladder suggestive of bladder outlet obstruction which may be rel ated to enlarged prostate. Mild bilateral hydronephrosis is also noted. 2. 8mm calcification within the bladder consistent with bladder calculus. 3. Tiny calcified nonobstructing bilateral renal calculi. 4. Midline ventral abdominal wall collection measuring 7.7 x 4.2 x 8.3 cm which likely represents hem atoma. A tiny air bubble is noted within this collection which raise the possibility of developing in fection. Clinical correlation is recommended. 5. Uncomplicated colonic diverticulosis. 6. Degenerative changes and scoliosis of the thoraco-lumbar spine. Derrell Merchant MD on April 29, 2017 at 12:24 Board Certified Radiologist. This report was verified electronically.
[2017-04-29] MEDS ORDERED: SODIUM CHLOR 0.9% 1000 ML INJ 1,000 ML IV ONE (12:45)
[2017-04-29] MEDS ORDERED: HYDROmorphone HCL PF 2 MG/ML VIAL IV PUSH ONE (13:15)
[2017-04-29] MEDS ORDERED: VANCOMYCIN INJ 1,000 MG in SODIUM CHLOR 0.9% 250 ML INJ 250 ML IV ONE (13:15)
--- NOTE | 2017-04-29 14:52 | HHI.HP ---
HPI Service Family Medicine Primary Care Physician Delroy Casey, DO Admission Diagnosis abdominal wall hematoma. Urinary retention. Patient on anticoagulat Diagnoses: International Travel<30 Days: No Contact w/Intl Traveler<30days: No Known Affected Area: No History of Present Illness Mr. Bolton is a very pleasant 76 year old man with extensive PMH including CAD s/p 4-vessel CABG, aortic valve replacement in 03/2016, BPH he is following with his urologist Dr. Michelle, HTN, PE x2 on coumadin, renal calculi who presented to the ED due to worsening abdominal pain, as well as urinary retention and dribbling. He recently underwent an umbilical hernia repair with mesh on 04/23/2017 as a same-day surgery. He states he had pain when getting home following the surgery however this was tolerable. He states over the past 2-3 days his pain has been worsening to the point where it was intolerable this morning. He states his was driving him and they were on their way to follow up with their surgeon however his pain was so intolerable the decided to come to the ED. He states his pain is primarily central abdomen however also describes generalized pain around his entire waist that was a 10/10 earlier today. Currently his pain he states is a 4/10. He specifically denies systemic symptoms or signs of sepsis. Denies any recent fevers or chills, night sweats. Specifically denies chest pain, SOB, cough, constipation or diarrhea. He states over the past few days as well he has not been able to void very well. At baseline and prior to his umbilical hernia repair 6 days ago, he is able to void with a steady stream without dribbling. He does wake up almost every hour at night to void. He denies dysuria or hematuria. He states he has not been able to produce a steady stream over this past 2-3 days, and only has dribbling. He takes flomax daily for his BPH. He states his last Lovenox injection was yesterday morning and last time taking Coumadin was also yesterday. He states his dose of Coumadin is 6 mg daily however on record we have 1.5 mg daily. Review of Systems Constitutional: DENIES: Fever, Chills, Change in appetite Eyes: DENIES: Blurred vision Respiratory: DENIES: Cough, Wheezing, Sputum production, Shortness of breath Cardiovascular: DENIES: Chest pain Gastrointestinal: COMPLAINS OF: Abdominal pain, DENIES: Black stools, Bloody stools, Constipation, Diarrhea, Nausea, Vomiting Genitourinary: COMPLAINS OF: Nocturia, DENIES: Hematuria, Dysuria Neurologic: DENIES: Headache Past Family Social History Past Medical History CAD s/p 4-vessel CABG Aortic valve replacement 03/23/2016 Cholecystotomy tube placement 04/02/2016 ITP Macular degeneration Incisional hernia repair 6 days ago BPH Gouty arthritis GERD HLD Depression HTN Renal calculi PE x2, on coumadin DDD Past Surgical History Umbilical hernia repair with mesh on 04/23/2017 CABG x4 Aortic valve replacement Gastric resection Right total knee replacement Cholecystectomy 2017 IVC filter placement Bilateral cataract extraction Cystis duct drainage Allergies: Coded Allergies: penicillin G (Verified Allergy, Severe, 04/29/17) aspirin (Verified Allergy, Intermediate, 04/29/17) Patient states that Aspirin causes him to have bleeding ulcers metoclopramide (Verified Allergy, Intermediate, 04/29/17) rosuvastatin (Verified Allergy, Intermediate, 04/29/17) Family History Mother: [place] Father: [place] Social History 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 Lives with his at home, along with his dog, 7 cats, parrot, one goose Tobacco: never Etoh: rare social occasions only Served in the [employer] for ~10 years in the 1949s Moved to [place] in 2004, from Physical Exam Vital Signs Vital Signs Date Time Temp Pulse Resp B/P (MAP) Pulse Ox O2 Delivery O2 Flow Rate FiO2 04/29/17 14:30 15 168/72 (104) 97 04/29/17 13:23 84 16 174/81 (112) 96 Room Air 04/29/17 11:30 15 04/29/17 11:24 78 15 180/74 (109) 98 Room Air 04/29/17 11:23 70 15 180/74 (109) 99 Room Air 04/29/17 09:33 98.0 58 17 180/78 (112) 98 Room Air Physical Exam GENERAL: NAD, lying comfortably in bed, very pleasant NEURO: Alert. Normal speech. 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 Motor grossly normal. SKIN: Palpable soft mass measuring abhijit. 8x4cm on central abdomen under his umbilicus, extensive ecchymosis as well in this area inferior to the umbilicus, tender to palpation, no drainage or active bleeding. HEAD: Normocephalic. Atraumatic. EYES: EOMI. No scleral icterus. No injection or drainage. ENT: No nasal drainage. Moist mucous membranes. No oral ulcers or lesions. NECK: Supple, trachea midline. No JVD. CARDIOVASCULAR: Regular rate and rhythm without murmurs, rubs, or gallops. Peripheral pulses 2+. RESPIRATORY: Breath sounds clear to auscultation and equal bilaterally, without wheezes, rales, or rhonchi. No accessory muscle use. GASTROINTESTINAL: Abdomen soft, nontender in outer quadrants apart from central hematoma, nondistended, normal BS. No rebound tenderness. No guarding. MUSCULOSKELETAL: 1+ bilateral lower extremity edema. Normal range of motion. BACK: Nontender without obvious deformity. Laboratory Laboratory Tests Test 04/29/17 10:45 04/29/17 10:50 Urine Color YELLOW Urine Turbidity HAZY Urine pH 6.0 Urine Specific [place] 1.012 Urine Protein NEG Urine Glucose (UA) NEG Urine Ketones NEG Urine Occult Blood MOD Urine Nitrite NEG Urine Bilirubin NEG Urine Urobilinogen LESS THAN 2.0 Urine Leukocyte Esterase MOD Urine RBC 36 Urine WBC 5 Urine Squamous Epithelial Cells <1 Urine Amorphous Sediment FEW Urine Bacteria OCC Urine Mucus FEW Microscopic Urinalysis Comment CULT NOT INDICATED White Blood Count 12.8 Red Blood Count 3.80 Hemoglobin 11.2 Hematocrit 33.8 Mean Corpuscular Volume 88.8 Mean Corpuscular Hemoglobin 29.3 Mean Corpuscular Hemoglobin Concent 33.0 Red Cell Distribution Width 16.4 Platelet Count 123 Mean Platelet Volume 8.5 Neutrophils (%) (Auto) 84.6 Lymphocytes (%) (Auto) 7.1 Monocytes (%) (Auto) 6.9 Eosinophils (%) (Auto) 1.2 Basophils (%) (Auto) 0.2 Neutrophils # (Auto) 10.9 Lymphocytes # (Auto) 0.9 Monocytes # (Auto) 0.9 Eosinophils # (Auto) 0.1 Basophils # (Auto) 0.0 CBC Comment DIFF FINAL Differential Comment Prothrombin Time 15.0 Prothromb Time International Ratio 1.5 Activated Partial Thromboplast Time 28.3 Blood Urea Nitrogen 35 Creatinine 1.82 Random Glucose 117 Total Protein 7.2 Albumin 3.0 Calcium Level 8.9 Alkaline Phosphatase 76 Aspartate Amino Transf (AST/SGOT) 14 Alanine Aminotransferase (ALT/SGPT) 21 Total Bilirubin 0.4 Sodium Level 141 Potassium Level 4.9 Chloride Level 107 Carbon Dioxide Level 27.4 Anion Gap 7 Estimat Glomerular Filtration Rate 36 Lipase 132 Result Diagram: 04/29/17 1050 04/29/17 1050 Caprini VTE Risk Assessment Caprini VTE Risk Assessment: Mod/High Risk (score >= 2) Caprini Risk Assessment Model Point Value = 1 Point Value = 2 Point Value = 3 Point Value = 5 Age 41-60 Minor surgery BMI > 25 kg/m2 Swollen legs Varicose veins or History of unexplained or recurrent spontaneous Oral contraceptives or hormone replacement Sepsis (< 1 month) Serious lung disease, including pneumonia (< 1 month) Abnormal pulmonary function Acute myocardial infarction Congestive heart failure (< 1 month) History of inflammatory bowel disease Medical patient at bed rest Age 61-74 Arthroscopic surgery Major open surgery (> 45 min) Laparoscopic surgery (> 45 min) Malignancy Confined to bed (> 72 hours) Immobilizing plaster cast Central venous access Age >= 75 History of VTE Family history of VTE Factor V Leiden Prothrombin [id number] Lupus anticoagulant Anticardiolipin antibodies Elevated serum homocysteine Heparin-induced thrombocytopenia Other congenital or acquired thrombophilia Stroke (< 1 month) Elective arthroplasty Hip, pelvis, or leg fracture Acute spinal cord injury (< 1 month) Prophylaxis Regimen Total Risk Factor Score Risk Level Prophylaxis Regimen 0-1 Low Early ambulation 2 Moderate Order ONE of the following: *Sequential Compression Device (SCD) *Heparin 5000 units SQ BID 3-4 Higher Order ONE of the following medications: *Heparin 5000 units SQ TID *Enoxaparin/Lovenox 40 mg SQ daily (WT < 150 kg, CrCl > 30 mL/min) *Enoxaparin/Lovenox 30 mg SQ daily (WT < 150 kg, CrCl > 10-29 mL/min) *Enoxaparin/Lovenox 30 mg SQ BID (WT < 150 kg, CrCl > 30 mL/min) AND/OR *Sequential Compression Device (SCD) 5 or more Highest Order ONE of the following medications: *Heparin 5000 units SQ TID (Preferred with Epidurals) *Enoxaparin/Lovenox 40 mg SQ daily (WT < 150 kg, CrCl > 30 mL/min) *Enoxaparin/Lovenox 30 mg SQ daily (WT < 150 kg, CrCl > 10-29 mL/min) *Enoxaparin/Lovenox 30 mg SQ BID (WT < 150 kg, CrCl > 30 mL/min) AND *Sequential Compression Device (SCD) Assessment and Plan Assessment and Plan Very pleasant 76 year old man with extensive PMH as above being admitted with umbilical hematoma and urinary retention. Code Status Alternative code OK with ACLS protocol DNI Discussed Condition With Dr. Blackman Will discuss with Dr. Montgomery Problem List: (1) Abdominal wall hematoma ICD Codes: S30.1XXA - Contusion of abdominal wall, initial encounter Status: Acute Plan: Abdomen/pelvis CT demonstrating ventral abdominal wall hematoma measuring 7.7 x 4.2 x 8.3 cm Tiny air bubble is noted within the collection raising concern for infection General surgery consulted, patient known to Dr. Ordoñez s/p Vancomycin 1gm IV in ED Will continue with ciprofloxacin 400 mg IV q12h and flagyl 500 mg IV q8h Dilaudid 0.5 mg IV q4h prn pain Hgb 11.2 NPO after MN ahead of surgery in the AM tomorrow (2) Urinary retention ICD Codes: R33.9 - Retention of urine, unspecified Status: Acute Plan: Patient has known history of BPH as well as renal calculi Abdomen/pelvis CT showing marked distention of the urinary bladder suggestive of bladder outlet obstruction may be related to enlarged prostate; mild bilateral hydronephrosis, 8 mm bladder calculus, tiny bilateral nonobstructing renal calculi Novak catheter placed, draining clear urine Continue flomax daily (3) Hx pulmonary embolism ICD Codes: Z86.711 - Personal history of pulmonary embolism Status: Chronic Plan: Will hold coumadin and lovenox given the hematoma and ahead of surgery in the AM INR 1.5 Per general surgery recommendations, will hold anticoagulation for at least 24 hours postop Monitor for signs of bleeding after resuming (4) Leukocytosis ICD Codes: D72.829 - Elevated white blood cell count, unspecified Status: Acute Plan: Leukocytosis to 12.8 with left shift noted Continue antibiotics as above Clinically appears well, without sxs of infection Continue to monitor (5) JUVE (acute kidney injury) ICD Codes: N17.9 - Acute kidney failure, unspecified Status: Acute Plan: Cr 1.82, baseline ~1.0 BUN 35, BUN/Cr ratio within normal limits Likely postrenal due to outlet obstruction likely from BPH Patient follows with Dr. Michelle his urologist Consider urology consult if urinary symptoms do not improve following removal of Novak (6) Anemia ICD Codes: D64.9 - Anemia, unspecified Status: Acute Plan: Hgb 11.2 on admission Continue to trend (7) Hypertension ICD Codes: I10 - Essential (primary) hypertension Status: Chronic Plan: Monitor vitals q4h Not on any home antihypertensives Clonidine 0.1 mg po q6h prn BP > 180/100 Hydralazine 10 mg IV q4h prn BP > 160/90 (8) GERD (gastroesophageal reflux disease) ICD Codes: K21.9 - Gastro-esophageal reflux disease without esophagitis Status: Chronic Plan: Protonix 40 mg po daily (9) Nutrition, metabolism, and development symptoms ICD Codes: R63.8 - Other symptoms and signs concerning food and fluid intake Status: Acute Plan: Fluids: NS at 120 cc/hr Electrolytes: WNL, continue to monitor Nutrition: FLD, NPO after MN DVT ppx: b/l SCDs, restart chemical anticoagulation 24 hours after postop GI ppx: Protonix Physician Certification 2 Midnight Certification Type: Admission for Inpatient Services Order for Inpatient Services The services are ordered in accordance with Medicare regulations or non- Medicare payer requirements, as applicable. In the case of services not specified as inpatient-only, they are appropriately provided as inpatient services in accordance with the 2-midnight benchmark. Estimated LOS (days): 2 days is the estimated time the patient will need to remain in the hospital, assuming treatment plan goals are met and no additional complications. Post-Hospital Plan: Home Problem Qualifiers (1) Abdominal wall hematoma: Qualified Codes: S30.1XXA - Contusion of abdominal wall, initial encounter Harsha Neff MD R2 Apr 29, 2017 14:52
--- NOTE | 2017-04-29 15:14 | MB ---
cc: MARITZA DELGADO M.D. DATE OF CONSULTATION: 04/29/2017 REASON FOR CONSULTATION Expanding umbilical hematoma. HISTORY OF PRESENT ILLNESS The patient is a 76-year-old male who 6 days ago underwent umbilical hernia repair with mesh. The patient was to be seen in the office today but his states that over the last two days he has been developing progressively increased size of mass under the umbilicus. She also reports that he has had progressive problems with urinating and has not been able to urinate other than small dribbles for the last 2-3 days. The patient was brought into the emergency department for both of the above problems. The patient denies any nausea, vomiting, fever, chills. PAST MEDICAL HISTORY 1. He has a history of ITP with low platelet count of approximately 70,000. 2. Gouty arthritis. 3. GE reflux disease. 4. Hyperlipidemia. 5. Hypertension. 6. Kidney stones. 7. PE x2 on Coumadin. 8. The patient has had aortic valve replacement in October of this year. 9. The patient underwent cholecystectomy earlier this year and required open procedure with T-tube placement. PAST SURGICAL HISTORY 1. Gastric resection. 2. Open cholecystectomy earlier this year. 3. Umbilical hernia repair 6 days ago. 4. The patient has an IVC filter and underwent 5. CABG x4 and 6. Aortic valve replacement in the past. 7. He has had bilateral cataract extraction removal. 8. Right total knee replacement. SOCIAL HISTORY He does not drink, smoke or use other medications. ALLERGIES The patient has allergy to PENICILLIN G, ASPIRIN, METOCLOPRAMIDE, ROSUVASTATIN. MEDICATIONS Current meds include: 1. Bryant 5/325 one to two q. 4 hours p.r.n. pain since surgery. He has stopped using these as they cause severe constipation. 2. Lovenox 40 mg b.i.d. 3. Coumadin 1.5 mg p.o. daily. 4. Senna one tab p.o. q.h.s. 5. Pantoprazole 40 mg p.o. q.12 hours. 6. Tamsulosin 0.4 mg p.o. q.h.s. 7. Acetaminophen q. 4-6 hours. REVIEW OF SYSTEMS A 10-point review of systems is negative except for decreased urinary output with dribbling and abdominal pain around the umbilicus with increased bruising. PHYSICAL EXAMINATION GENERAL: Physical exam reveals an elderly male who is uncomfortable. VITAL SIGNS: BP 174/81, pulse 84, respirations 16, temperature 98.0, 96% sat on room air. HEENT: Sclerae are anicteric. Pupils are reactive. CHEST: Chest is clear to auscultation. CARDIAC: Exam reveals regular rate and rhythm. ABDOMEN: Abdomen is soft with a palpable mass under the umbilicus with significant amount of ecchymosis underneath this, inferior to the umbilicus. Novak catheter has been placed and the patient has approximately 1000 ccs of clear urine. EXTREMITIES: This patient is able to move all four extremities and has minimal pedal edema. LABORATORY DATA Laboratory values demonstrate WBCs of 12.8, platelets 123,000, BUN and creatinine are 35 and 1.8. Liver function tests are low-normal. Lipase is normal. IMAGING STUDIES CT scan demonstrates a 7.7 x 4.2 x 8.3 cm abdominal wall fluid collection which represents a hematoma with some tiny air bubbles noted. Possibility of developing infection is raised. There is a calcification in the bladder consistent with a bladder calculus. ASSESSMENT Urinary retention, likely secondary to bladder stone, although recent surgery may be playing a role as well. Umbilical hematoma, possibly infected. Renal insufficiency. History of pulmonary embolus on anticoagulation. PLAN The patient does not have shaking chills and fever or other signs of sepsis; will place him on antibiotics and hydrate him gently tonight. Would plan operative evacuation of hematoma and either placement of a vac dressing or drainage device. I have discussed this with the patient and his . The patient may have a diet today and would encourage hydration to improve his renal function prior to operative intervention. Would also hold any anticoagulation for at least 24 hours after surgery due to his current bleeding diathesis and his thrombocytopenia. MD BISHOP Jaramillo/RUTH /1:42 PM /2:36 PM
[2017-04-29] MEDS ORDERED: BISACODYL 10 MG SUPP RECTAL PRN (15:45)
[2017-04-29] MEDS ORDERED: LACTULOSE SYRUP 20 GM/30 ML CUP PO PRN (15:45)
[2017-04-29] MEDS ORDERED: ONDANSETRON HCL 4 MG/2 ML VIAL IVP PRN (15:45)
[2017-04-29] MEDS ORDERED: MAGNESIUM HYDROXIDE SUSP 30 ML CUP PO PRN (15:45)
[2017-04-29] MEDS ORDERED: ACETAMINOPHEN 325 MG TAB PO PRN (15:45)
[2017-04-29] MEDS ORDERED: NALOXONE HCL 0.4 MG/ML AMP IV PUSH PRN (15:45)
[2017-04-29] MEDS: SODIUM CHLOR 0.9% 1000 ML INJ 1,000 ML IV SCH (16:00)
[2017-04-29] MEDS: PANTOPRAZOLE SOD 40 MG DELAYED RELEASE TAB PO SCH (16:12)
[2017-04-29] MEDS: metroNIDAZOLE 500 MG INJ 100 ML IV SCH (16:13)
[2017-04-29] MEDS ORDERED: hydrALAZINE HCL 20 MG/ML VIAL IV PUSH PRN (16:15)
[2017-04-29] MEDS ORDERED: cloNIDine HCL 0.1 MG TAB PO PRN (16:15)
[2017-04-29] MEDS ORDERED: CIPROFLOXACIN 400 MG PREMIX 200 ML IV SCH (17:00)
[2017-04-29] MEDS: SODIUM CHLORIDE 0.9% FLUSH 10 ML FLUSH IV FLUSH SCH (20:25)
[2017-04-29] MEDS: DOCUSATE SODIUM 50 MG/SENNA 8.6 MG TAB PO SCH (20:26)
[2017-04-29] MEDS: CIPROFLOXACIN 400 MG PREMIX 200 ML IV SCH (20:27)
[2017-04-29] MEDS: TAMSULOSIN HCL 0.4 MG CAP PO SCH (20:27)
[2017-04-30] VITALS (9 sets, daily range): BP systolic 116–173; BP diastolic 59–77; PULSE 52–77; RESP 14–21; TEMP 96–98.3; O2SAT 93–100
[2017-04-30] MEDS: metroNIDAZOLE 500 MG INJ 100 ML IV SCH ×3 (00:16→16:00)
[2017-04-30] MEDS: HYDROmorphone HCL PF 2 MG/ML VIAL IV PUSH PRN ×2 (01:16→06:39)
[2017-04-30] MEDS: SODIUM CHLOR 0.9% 1000 ML INJ 1,000 ML IV SCH ×3 (03:55→12:00)
[2017-04-30] MEDS ORDERED: SODIUM CHLORID 0.9% 500 ML IV PRN (04:15)
[2017-04-30] MEDS ORDERED: CHLORHEXIDINE GLUCONATE 2 % 1 PACK (2 CLOTHS) TOPICAL PRN (04:15)
[2017-04-30] MEDS ORDERED: LACTATED RINGER'S 1000 ML IV PRN (04:15)
[2017-04-30] MEDS ORDERED: POVIDONE IODINE 5% (ANTISEPSIS KIT) 4 APPLICATIONS EACH NARE PRN (04:15)
[2017-04-30 08:22] LABS: AUTOMATED NEUTROPHIL # 5.6 TH/MM3 (1.8-7.7); BASOPHIL % 0.5 % (0.0-2.0); EOSINOPHIL # 0.3 TH/MM3 (0-0.4); EOSINOPHIL % 3.9 % (0.0-4.0); HEMATOCRIT 29.7 % (39.0-51.0); HEMO FLAGS DIFF FINAL; LYMPH % 16.5 % (9.0-44.0); LYMPHOCYTE # 1.3 TH/MM3 (1.0-4.8); MEAN CELL VOLUME 88.6 FL (80.0-100.0); MEAN CORPUSCULAR HEMOGLOBIN 30.2 PG (27.0-34.0); MONO % 9.2 % (0.0-8.0); NEUT % 69.9 % (16.0-70.0); PLATELET COUNT 113 TH/MM3 (150-450); RED BLOOD COUNT 3.35 MIL/MM3 (4.50-5.90); RED CELL DISTRIBUTION WIDTH 15.9 % (11.6-17.2); WHITE BLOOD COUNT 7.9 TH/MM3 (4.0-11.0)
[2017-04-30 08:28] LABS: INTERNATIONAL NORMALIZED RATIO 1.6 RATIO; PROTHROMBIN TIME - PATIENT 15.8 SEC (9.8-11.6)
[2017-04-30 08:54] LABS: BICARBONATE 27.3 MEQ/L (21.0-32.0); POTASSIUM 4.1 MEQ/L (3.5-5.1)
[2017-04-30] MEDS: SODIUM CHLORIDE 0.9% FLUSH 10 ML FLUSH IV FLUSH SCH ×2 (09:00→20:48)
[2017-04-30] MEDS: DOCUSATE SODIUM 50 MG/SENNA 8.6 MG TAB PO SCH ×2 (09:00→20:47)
[2017-04-30] MEDS: PANTOPRAZOLE SOD 40 MG DELAYED RELEASE TAB PO SCH (09:36)
[2017-04-30] MEDS: CIPROFLOXACIN 400 MG PREMIX 200 ML IV SCH ×2 (09:37→20:47)
--- NOTE | 2017-04-30 13:39 | HHI.FPPN ---
Subjective Remarks Patient doing well this am. Looking forward to having procedure. Pain controlled with medication. He is ambulating without difficulty. Denies n/v/d, sob. (Chavo Peterson MD, R3) Objective Vitals Vital Signs Date Time Temp Pulse Resp B/P (MAP) Pulse Ox O2 Delivery O2 Flow Rate FiO2 04/30/17 08:00 97.7 68 19 161/73 (102) 96 04/30/17 04:00 98.3 77 18 129/66 (87) 98 04/30/17 00:00 97.5 66 18 142/63 (89) 98 04/29/17 23:47 68 04/29/17 23:00 68 04/29/17 20:00 99.9 74 18 125/61 (82) 95 04/29/17 14:30 15 168/72 (104) 97 I/O 04/29/17 04/29/17 04/29/17 04/30/17 04/30/17 04/30/17 07:00 15:00 23:00 07:00 15:00 23:00 Intake Total 125 ml 1870 ml 100 ml Output Total 2400 ml 1700 ml Balance 125 ml -530 ml -1600 ml Intake Oral 420 ml IV Total 125 ml 1450 ml 100 ml Output Urine Total 2400 ml 1700 ml # Bowel Movements 0 (Chavo Peterson MD, R3) Result Diagram: 04/30/1772704/30/17 0728 Objective Remarks GENERAL: NAD, very pleasant NEURO: Alert. Normal speech. bell tier grossly intact. Motor grossly normal. SKIN: Palpable soft mass measuring abhijit. 8x4cm on central abdomen under his umbilicus, extensive ecchymosis as well in this area inferior to the umbilicus, tender to palpation, no drainage or active bleeding. HEAD: Normocephalic. Atraumatic. EYES: EOMI. No scleral icterus. No injection or drainage. ENT: No nasal drainage. Moist mucous membranes. No oral ulcers or lesions. NECK: Supple, trachea midline. No JVD. CARDIOVASCULAR: Regular rate and rhythm without murmurs, rubs, or gallops. Peripheral pulses 2+. RESPIRATORY: Breath sounds clear to auscultation and equal bilaterally, without wheezes, rales, or rhonchi. No accessory muscle use. GASTROINTESTINAL: Abdomen soft, nontender in outer quadrants apart from central hematoma, nondistended, normal BS. No rebound tenderness. No guarding. MUSCULOSKELETAL: 1+ bilateral lower extremity edema. Normal range of motion. BACK: Nontender without obvious deformity. (Chavo Peterson MD, R3) A/P Assessment and Plan Very pleasant 76 year old man with extensive PMH as above being admitted with umbilical hematoma and urinary retention. Discharge Planning Pending clinical improvement (Chavo Peterson MD, R3) Attending Attestation Medical rounds were performed this morning with medical residents, case discussed in detail,EMR reviewed, patient seen and examined, agree with above documentation, see Orders. (Lan Montgomery MD) Problem List: (1) Abdominal wall hematoma ICD Codes: S30.1XXA - Contusion of abdominal wall, initial encounter Status: Acute Plan: Abdomen/pelvis CT demonstrating ventral abdominal wall hematoma measuring 7.7 x 4.2 x 8.3 cm Tiny air bubble is noted within the collection raising concern for infection General surgery consulted, patient known to Dr. Ordoñez Plan for OR 04/30/17 s/p Vancomycin 1gm IV in ED Will continue with ciprofloxacin 400 mg IV q12h and flagyl 500 mg IV q8h Dilaudid 0.5 mg IV q4h prn pain (2) Urinary retention ICD Codes: R33.9 - Retention of urine, unspecified Status: Acute Plan: Patient has known history of BPH as well as renal calculi Abdomen/pelvis CT showing marked distention of the urinary bladder suggestive of bladder outlet obstruction may be related to enlarged prostate; mild bilateral hydronephrosis, 8 mm bladder calculus, tiny bilateral nonobstructing renal calculi Lane catheter placed, draining clear urine- remove lane after improvement in renal function. Continue flomax daily- (3) Hx pulmonary embolism ICD Codes: Z86.711 - Personal history of pulmonary embolism Status: Chronic Plan: Will hold coumadin and lovenox given the hematoma and ahead of surgery in the AM INR 1.5 Per general surgery recommendations, will hold anticoagulation for at least 24 hours postop Monitor for signs of bleeding after resuming (4) JUVE (acute kidney injury) ICD Codes: N17.9 - Acute kidney failure, unspecified Status: Acute Plan: Cr 1.82, baseline ~1.0 BUN 35, BUN/Cr ratio within normal limits Likely postrenal due to outlet obstruction likely from BPH Patient follows with Dr. Michelle his urologist Consider urology consult if urinary symptoms do not improve following removal of Lane (5) Anemia ICD Codes: D64.9 - Anemia, unspecified Status: Acute Plan: Hgb 11.2 on admission Continue to trend (6) Hypertension ICD Codes: I10 - Essential (primary) hypertension Status: Chronic Plan: Monitor vitals q4h Not on any home antihypertensives Clonidine 0.1 mg po q6h prn BP > 180/100 Hydralazine 10 mg IV q4h prn BP > 160/90 (7) GERD (gastroesophageal reflux disease) ICD Codes: K21.9 - Gastro-esophageal reflux disease without esophagitis Status: Chronic Plan: Protonix 40 mg po daily (8) Nutrition, metabolism, and development symptoms ICD Codes: R63.8 - Other symptoms and signs concerning food and fluid intake Status: Acute Plan: Fluids: NS at 120 cc/hr Electrolytes: WNL, continue to monitor Nutrition: FLD, NPO for procedure. Regular diet after. DVT ppx: b/l SCDs, restart chemical anticoagulation 24 hours after postop GI ppx: Protonix (9) Leukocytosis ICD Codes: D72.829 - Elevated white blood cell count, unspecified Status: Resolved Plan: now resolved. (Chavo Peterson MD, R3) Problem Qualifiers (1) Abdominal wall hematoma: Qualified Codes: S30.1XXA - Contusion of abdominal wall, initial encounter Chavo Peterson MD, R3 Apr 30, 2017 13:39 Lan Montgomery MD Apr 30, 2017 15:57
[2017-04-30 18:41] LABS: INTERNATIONAL NORMALIZED RATIO 1.4 RATIO; PROTHROMBIN TIME - PATIENT 13.8 SEC (9.8-11.6)
[2017-04-30] MEDS: TAMSULOSIN HCL 0.4 MG CAP PO SCH (21:00)
[2017-05-01] VITALS: BP 164/73; PULSE 70; RESP 20; TEMP 97.3; O2SAT 96
[2017-05-01] MEDS ORDERED: BUPIVACAINE/EPINEPHRINE 0.5% PF 30 ML VIAL ONE (01:32)
--- NOTE | 2017-05-01 02:42 | HHI.PR ---
cc: Tony Ordoñez MD Immediate Post Op Note Procedure Date: May 01, 2017 Pre Op Diagnosis: Periumbilical hematoma Post Op Diagnosis: Same Surgeon: Tony Ordoñez Tech Intern(s): None Procedure: Incision and drainage periumbilical hematoma with VAC dressing placement Findings: Hematoma, no evidence infection Complications: None Estimated blood loss: 200 ml clot Anesthesia: LMA Drains: None IVF (400 ml) Patient to: PACU Patient Condition: Good Date/Time of Procedure: SEE SURGICAL CARE RECORD Tony Ordoñez MD May 01, 2017 02:42
[2017-05-01] MEDS ORDERED: DO NOT ADM ANY ANTICOAGULANT DRUGS PRN (02:45)
[2017-05-01] MEDS ORDERED: traMADol HCL 50 MG TAB PO PRN (02:45)
[2017-05-01] MEDS: metroNIDAZOLE 500 MG INJ 100 ML IV SCH ×4 (03:25→23:24)
[2017-05-01] MEDS: HYDROmorphone HCL PF 2 MG/ML VIAL IV PUSH PRN ×3 (03:28→22:31)
[2017-05-01 04:00] VITALS: BP 188/80; PULSE 60; RESP 20; TEMP 98.6; O2SAT 99
[2017-05-01 07:11] LABS: AUTOMATED NEUTROPHIL # 4.8 TH/MM3 (1.8-7.7); BASOPHIL # 0.1 TH/MM3 (0-0.2); BASOPHIL % 0.7 % (0.0-2.0); EOSINOPHIL # 0.3 TH/MM3 (0-0.4); EOSINOPHIL % 4.6 % (0.0-4.0); HEMATOCRIT 28.9 % (39.0-51.0); HEMO FLAGS DIFF FINAL; LYMPH % 17.3 % (9.0-44.0); LYMPHOCYTE # 1.2 TH/MM3 (1.0-4.8); MEAN CELL VOLUME 88.8 FL (80.0-100.0); MEAN CORPUSCULAR HEMOGLOBIN 29.7 PG (27.0-34.0); MEAN CORPUSCULAR HGB CONC 33.4 % (32.0-36.0); MONO % 9.3 % (0.0-8.0); NEUT % 68.1 % (16.0-70.0); PLATELET COUNT 125 TH/MM3 (150-450); RED BLOOD COUNT 3.25 MIL/MM3 (4.50-5.90); RED CELL DISTRIBUTION WIDTH 15.8 % (11.6-17.2); WHITE BLOOD COUNT 7.1 TH/MM3 (4.0-11.0)
[2017-05-01 07:24] LABS: ANION GAP 8 MEQ/L (5-15); AST (GOT) 17 U/L (15-37); BICARBONATE 26.1 MEQ/L (21.0-32.0); BLOOD UREA NITROGEN 16 MG/DL (7-18); CHLORIDE 106 MEQ/L (98-107); GLOMERULAR FILTRATION RATE 76 ML/MIN (>89); POTASSIUM 3.7 MEQ/L (3.5-5.1); SODIUM (NA) 140 MEQ/L (136-145)
[2017-05-01 07:25] LABS: ALT (GPT) 18 U/L (12-78)
[2017-05-01 07:28] LABS: ALKALINE PHOSPHATASE 59 U/L (45-117); TOTAL BILIRUBIN ADULT 0.5 MG/DL (0.2-1.0)
[2017-05-01 08:00] VITALS: BP 162/73; PULSE 62; RESP 17; TEMP 97.5; O2SAT 100
[2017-05-01] MEDS: DOCUSATE SODIUM 50 MG/SENNA 8.6 MG TAB PO SCH ×2 (08:17→21:19)
[2017-05-01] MEDS: SODIUM CHLORIDE 0.9% FLUSH 10 ML FLUSH IV FLUSH SCH ×2 (08:17→21:19)
--- NOTE | 2017-05-01 08:18 | MP ---
cc: MARITZA DELGADO M.D. DATE OF SURGERY: 05/01/2017 PROCEDURE Incision and drainage of periumbilical hematoma. PREOPERATIVE DIAGNOSIS Periumbilical hematoma. POSTOPERATIVE DIAGNOSIS Periumbilical hematoma. ANESTHESIA LMA. SURGEON Tiago ESTIMATED BLOOD LOSS 200 mls, old clot. FLUIDS: 600 Mls crystalloid COMPLICATIONS None. DRAINS: None SPECIMEN None PROCEDURE IN DETAIL The patient was taken to the operating room and placed on the operating table in the supine position. After an adequate level of laryngeal mask anesthesia was instituted the abdomen was prepped and draped in usual fashion. Time-out was taken confirming the correct patient site, procedure be performed. The previous incision was opened and old blood clot was removed. This was a removed bluntly and with suction device. Following this the wound was irrigated with saline and then cleaned with peroxide. With one all clot was removed. The patient had placement of the of the Surgicel powder and then a vac dressing applied. The patient was then extubated and taken back to the recovery room in stable condition. Sponge, needle and instrument counts were reported be correct. He tolerated the procedure well. MD BISHOP Jaramillo/federica /2:43 AM /8:02 AM
[2017-05-01] MEDS: PANTOPRAZOLE SOD 40 MG DELAYED RELEASE TAB PO SCH (08:22)
[2017-05-01] MEDS: CIPROFLOXACIN 400 MG PREMIX 200 ML IV SCH ×2 (09:33→21:19)
--- NOTE | 2017-05-01 10:40 | RADRPT ---
EXAM DATE/TIME: 05/01/2017 09:51 [facility] COMPARISON: US LEG BILATERAL VENOUS DOPPLER, March 19, 2016, 13:15. INDICATIONS : Bilateral leg swelling. MEDICAL HISTORY : Hypercholesterolemia. Hypertension. Neck pain. Dizziness. Pulmonary embolism. Umbilical hernia. Kidn ey stones. Arthritis. SURGICAL HISTORY : CABG; Cholecystectomy. Bilateral cataract surgery. Aortic valve replacement. Hernia repair. Gastric r esection. Right knee replacement. ENCOUNTER: Subsequent ACUITY: >1 year PAIN SCORE: 2/10 LOCATION: Bilateral legs. TECHNIQUE: Venous ultrasound of the left and right leg was performed from the inguinal ligament to the proximal calf. Real-time, color Doppler and spectral tracing, compression and augmentation techniques were us ed. FINDINGS: RIGHT LEG: There is normal compressibility of the deep venous system from the inguinal region to the proximal ca lf. No echogenic clot is seen in the lumen of the common femoral, femoral, popliteal, and posterior tibial veins. There is a normal response of the venous system to proximal and distal augmentation an d respiration. LEFT LEG: Non-occlusive thrombus is noted within the left popliteal vein. No echogenic clot is seen in the lume n of the common femoral, femoral, and posterior tibial veins. There is a normal response of the veno us system to proximal and distal augmentation and respiration. CONCLUSION: Non-occlusive thrombus within the left popliteal vein. Derrell Merchant MD on May 01, 2017 at 10:36 Board Certified Radiologist. This report was verified electronically.
--- NOTE | 2017-05-01 10:42 | EKG ---
Date Performed: 04/30/2017 Time Performed: 23:22:28 PTAGE: 76 years EKG: Sinus rhythm WITH SINUS ARRHYTHMIA NONSPECIFIC INTRAVENTRICULAR CONDUCTION DELAY POSSIBLE LEFT VENTRICULAR HYPERT ROPHY AND ST-T CHANGE POSSIBLE SEPTAL MYOCARDIAL INFARCTION , PROBABLY OLD ABNORMAL ECG PREVIOUS TRACING : 04/23/2017 06.50 No significant change from previous tracing noted. DOCTOR: Don Campuzano Interpretating Date/Time 05/01/2017 10:40:25
--- NOTE | 2017-05-01 10:53 | HHI.FPPN ---
Subjective Remarks No acute events overnight. Pt sitting up in chair. Pt complaining of b/l calf pain this AM. Pt has hx of DVT and PE. Urgent US b/l legs ordered. Patient denies CP, SOB, abdominal pain, and N/V. Patient is able to tolerate diet well. Afebrile. (Katelin Regan MD R1) Objective Vitals Vital Signs Date Time Temp Pulse Resp B/P (MAP) Pulse Ox O2 Delivery O2 Flow Rate FiO2 05/01/17 09:33 18 05/01/17 08:00 97.5 62 17 162/73 (102) 100 05/01/17 04:00 98.6 60 20 188/80 (116) 99 05/01/17 03:00 62 21 171/78 (109) 100 Nasal Cannula 2 05/01/17 02:45 61 20 175/81 (112) 100 Nasal Cannula 2 05/01/17 02:30 63 20 173/79 (110) 100 Nasal Cannula 3 05/01/17 02:16 98.1 66 20 167/76 (106) 100 Nasal Cannula 3 05/01/17 00:00 97.3 70 20 164/73 (103) 96 04/30/17 23:00 98.2 68 14 165/73 (103) 97 04/30/17 20:00 98.1 55 21 173/75 (107) 98 164/72 (102) 04/30/17 20:00 68 04/30/17 16:00 96.5 52 17 171/74 (106) 98 04/30/17 16:00 97.4 62 17 164/77 93 04/30/17 15:46 96.0 52 17 171/74 98 04/30/17 14:50 98.0 64 15 155/71 100 04/30/17 14:38 97.4 62 14 116/59 100 04/30/17 12:00 97.9 59 18 132/60 (84) 98 I/O 04/30/17 04/30/17 04/30/17 05/01/17 05/01/17 05/01/17 07:00 15:00 23:00 07:00 15:00 23:00 Intake Total 100 ml 1605 ml 594 ml 690 ml 100 ml Output Total 1700 ml 1800 ml 1520 ml Balance -1600 ml 1605 ml -1206 ml -830 ml 100 ml Intake Oral 0 ml 240 ml IV Total 100 ml 1300 ml 300 ml 450 ml 100 ml FFP 305 ml 294 ml Output Urine Total 1700 ml 1800 ml 1320 ml Estimated Blood Loss 200 ml # Voids 1 # Bowel Movements 0 (Katelin Regan MD R1) Result Diagram: 05/01/17 0500 05/01/17 0500 Objective Remarks GENERAL: NAD, very pleasant NEURO: Alert, awake, oriented x 3 SKIN: Vac dressing applied to abdomen, moderate areas of ecchymosis, stasis dermatitis in lower extremities HEAD: Normocephalic. Atraumatic. EYES: EOMI. No scleral icterus. No injection or drainage. ENT: No nasal drainage. Moist mucous membranes. No oral ulcers or lesions. NECK: Supple, trachea midline. No JVD. CARDIOVASCULAR: Regular rate and rhythm without murmurs, rubs, or gallops. Peripheral pulses 2+. RESPIRATORY: Breath sounds clear to auscultation and equal bilaterally, without wheezes, rales, or rhonchi. No accessory muscle use. GASTROINTESTINAL: Abdomen soft, nontender in outer quadrants apart from central hematoma, nondistended, normal BS. No rebound tenderness. No guarding. MUSCULOSKELETAL: 1+ bilateral lower extremity edema. Normal range of motion. Mild tenderness in calf upon palpation. Negative ascencion's sign. BACK: Nontender without obvious deformity. (Katelin Regan MD R1) A/P Assessment and Plan Very pleasant 76 year old man with extensive PMH as above being admitted with umbilical hematoma and urinary retention. S/p I & D of umbilical hematoma with vac dressing placed. POD # 0. Discharge Planning Pending clinical improvement (Katelin Regan MD R1) Attending Attestation Medical rounds reguarding this patient performed with Dr Ivone Regan this morning, detailed discussion relating to patients hospital course held, patient seen and examined, agree to documentation in this note, See Orders (Lan Montgomery MD) Problem List: (1) Abdominal wall hematoma ICD Codes: S30.1XXA - Contusion of abdominal wall, initial encounter Status: Acute Plan: Abdomen/pelvis CT demonstrating ventral abdominal wall hematoma measuring 7.7 x 4.2 x 8.3 cm. s/p I & D of umbilical hematoma with vac dressing. POD# 0. General surgery consulted, patient known to Dr. Ordoñez Will continue with ciprofloxacin 400 mg IV q12h and flagyl 500 mg IV q8h Dilaudid 0.5 mg IV q4h prn pain (2) Urinary retention ICD Codes: R33.9 - Retention of urine, unspecified Status: Acute Plan: Patient has known history of BPH as well as renal calculi Abdomen/pelvis CT showing marked distention of the urinary bladder suggestive of bladder outlet obstruction may be related to enlarged prostate; mild bilateral hydronephrosis, 8 mm bladder calculus, tiny bilateral nonobstructing renal calculi Lane catheter placed, draining clear urine- remove lane after improvement in renal function. Continue flomax daily- (3) Hx pulmonary embolism ICD Codes: Z86.711 - Personal history of pulmonary embolism Status: Chronic Plan: Restart Warfarin today B/l US of lower extremities 05/01 demonstrated non-occlusive thrombosis in left popiteal vein Will restart Lovenox 40mg SQ BID this evening INR 1.5 Per general surgery recommendations, will hold anticoagulation for at least 24 hours postop Monitor for signs of bleeding after resuming (4) JUVE (acute kidney injury) ICD Codes: N17.9 - Acute kidney failure, unspecified Status: Acute Plan: Cr 1.82, baseline ~1.0 BUN 35, BUN/Cr ratio within normal limits Improving Likely postrenal due to outlet obstruction likely from BPH Patient follows with Dr. Michelle his urologist Consider urology consult if urinary symptoms do not improve following removal of Lane (5) Anemia ICD Codes: D64.9 - Anemia, unspecified Status: Acute Plan: Hgb 11.2 on admission Continue to trend (6) Hypertension ICD Codes: I10 - Essential (primary) hypertension Status: Chronic Plan: Monitor vitals q4h Not on any home antihypertensives Clonidine 0.1 mg po q6h prn BP > 180/100 Hydralazine 10 mg IV q4h prn BP > 160/90 (7) GERD (gastroesophageal reflux disease) ICD Codes: K21.9 - Gastro-esophageal reflux disease without esophagitis Status: Chronic Plan: Protonix 40 mg po daily (8) Nutrition, metabolism, and development symptoms ICD Codes: R63.8 - Other symptoms and signs concerning food and fluid intake Status: Acute Plan: Fluids: none Electrolytes: WNL, continue to monitor Nutrition: Heart Healthy Diet DVT ppx: b/l SCDs, restart chemical anticoagulation 24 hours after postop GI ppx: Protonix (9) Leukocytosis ICD Codes: D72.829 - Elevated white blood cell count, unspecified Status: Resolved Plan: now resolved. (Katelin Regan MD R1) Problem Qualifiers (1) Abdominal wall hematoma: Qualified Codes: S30.1XXA - Contusion of abdominal wall, initial encounter Katelin Regan MD R1 May 01, 2017 10:53 Lan Montgomery MD May 02, 2017 10:57
[2017-05-01 12:00] VITALS: BP 114/54; PULSE 66; RESP 16; TEMP 97.5; O2SAT 99
[2017-05-01] MEDS: SODIUM CHLOR 0.9% 1000 ML INJ 1,000 ML IV SCH (12:00)
--- NOTE | 2017-05-01 13:25 | HHI.PR ---
Subjective Subjective Notes pain controlled Objective Vitals/I&O Vital Signs Date Time Temp Pulse Resp B/P (MAP) Pulse Ox O2 Delivery O2 Flow Rate FiO2 05/01/17 12:00 97.5 66 16 114/54 (74) 99 05/01/17 03:00 Nasal Cannula 2 Labs Laboratory Tests Test 04/30/17 17:51 05/01/17 05:00 Prothrombin Time 13.8 Prothromb Time International Ratio 1.4 White Blood Count 7.1 Red Blood Count 3.25 Hemoglobin 9.7 Hematocrit 28.9 Mean Corpuscular Volume 88.8 Mean Corpuscular Hemoglobin 29.7 Mean Corpuscular Hemoglobin Concent 33.4 Red Cell Distribution Width 15.8 Platelet Count 125 Mean Platelet Volume 8.6 Neutrophils (%) (Auto) 68.1 Lymphocytes (%) (Auto) 17.3 Monocytes (%) (Auto) 9.3 Eosinophils (%) (Auto) 4.6 Basophils (%) (Auto) 0.7 Neutrophils # (Auto) 4.8 Lymphocytes # (Auto) 1.2 Monocytes # (Auto) 0.7 Eosinophils # (Auto) 0.3 Basophils # (Auto) 0.1 CBC Comment DIFF FINAL Differential Comment Blood Urea Nitrogen 16 Creatinine 0.96 Random Glucose 86 Total Protein 6.0 Albumin 2.5 Calcium Level 8.5 Alkaline Phosphatase 59 Aspartate Amino Transf (AST/SGOT) 17 Alanine Aminotransferase (ALT/SGPT) 18 Total Bilirubin 0.5 Sodium Level 140 Potassium Level 3.7 Chloride Level 106 Carbon Dioxide Level 26.1 Anion Gap 8 Estimat Glomerular Filtration Rate 76 Abdomen: Non-distended, Post-op tenderness Narrative Exam VAC inplace A/P Assessment and Plan 76yo male s/p ID abdominal wall hematoma, stable postop. pain ok continue VAC, change VAC Wednesday needs to have urinary retention treated prior to DC likely DC Wednesday with home health and possible home VAC Kentrell Hansen MD May 01, 2017 13:25
[2017-05-01 16:00] VITALS: BP 128/62; PULSE 69; RESP 16; TEMP 97.8; O2SAT 99
[2017-05-01] MEDS ORDERED: WARFARIN SOD 1 MG TAB PO SCH (16:00)
[2017-05-01] MEDS ORDERED: ENOXAPARIN SODIUM 40 MG/0.4 ML SYRINGE SQ SCH (19:00)
[2017-05-01 20:00] VITALS: BP 163/71; PULSE 67; RESP 20; TEMP 98; O2SAT 99
[2017-05-01] MEDS: TAMSULOSIN HCL 0.4 MG CAP PO SCH (21:19)
[2017-05-01] MEDS: ENOXAPARIN SODIUM 40 MG/0.4 ML SYRINGE SQ SCH (21:19)
[2017-05-02] VITALS (7 sets, daily range): BP systolic 126–147; BP diastolic 60–67; PULSE 57–80; RESP 16–20; TEMP 97–98.5; O2SAT 97–99
[2017-05-02 07:48] LABS: HEMATOCRIT 32.5 % (39.0-51.0); MEAN CELL VOLUME 88.4 FL (80.0-100.0); MEAN CORPUSCULAR HEMOGLOBIN 29.2 PG (27.0-34.0); PLATELET COUNT 153 TH/MM3 (150-450); RED BLOOD COUNT 3.67 MIL/MM3 (4.50-5.90); RED CELL DISTRIBUTION WIDTH 15.9 % (11.6-17.2); REVIEW FLAG FINAL; WHITE BLOOD COUNT 7.9 TH/MM3 (4.0-11.0)
[2017-05-02] MEDS: SODIUM CHLORIDE 0.9% FLUSH 10 ML FLUSH IV FLUSH SCH ×2 (08:06→21:18)
[2017-05-02] MEDS: metroNIDAZOLE 500 MG INJ 100 ML IV SCH (08:06)
[2017-05-02] MEDS: ENOXAPARIN SODIUM 40 MG/0.4 ML SYRINGE SQ SCH ×2 (08:06→21:17)
[2017-05-02] MEDS: DOCUSATE SODIUM 50 MG/SENNA 8.6 MG TAB PO SCH ×2 (08:06→21:17)
[2017-05-02] MEDS: PANTOPRAZOLE SOD 40 MG DELAYED RELEASE TAB PO SCH (08:06)
[2017-05-02 08:10] LABS: BICARBONATE 25.5 MEQ/L (21.0-32.0); POTASSIUM 3.6 MEQ/L (3.5-5.1)
[2017-05-02] MEDS: CIPROFLOXACIN 400 MG PREMIX 200 ML IV SCH (09:26)
--- NOTE | 2017-05-02 10:17 | HHI.FPPN ---
Subjective Remarks No acute events overnight. Pt sitting up in chair, eating breakfast. No complaints this AM. Denies CP, SOB, abdominal pain, and N/V. Afebrile. VSS. (Katelin Brown MD R1) Objective Vitals Vital Signs Date Time Temp Pulse Resp B/P (MAP) Pulse Ox O2 Delivery O2 Flow Rate FiO2 05/02/17 08:19 98 21 05/02/17 08:00 97.2 64 16 132/60 (84) 98 05/02/17 06:14 21 05/02/17 04:00 97.4 70 20 135/67 (89) 97 05/02/17 00:00 98.5 70 20 141/67 (91) 98 05/01/17 20:00 98.0 67 20 163/71 (101) 99 05/01/17 16:00 97.8 69 16 128/62 (84) 99 05/01/17 12:00 97.5 66 16 114/54 (74) 99 I/O 05/01/17 05/01/17 05/01/17 05/02/17 05/02/17 05/02/17 07:00 15:00 23:00 07:00 15:00 23:00 Intake Total 690 ml 1140 ml 500 ml 240 ml Output Total 1520 ml 1200 ml 1950 ml Balance -830 ml 1140 ml -700 ml -1710 ml Intake Oral 240 ml 500 ml 240 ml IV Total 450 ml 1140 ml Output Urine Total 1320 ml 1200 ml 1950 ml Estimated Blood Loss 200 ml # Bowel Movements 0 (Katelin Brown MD R1) Result Diagram: 05/02/1772605/02/17726 Objective Remarks GENERAL: NAD, very pleasant NEURO: Alert, awake, oriented x 3 SKIN: Vac dressing applied to abdomen, moderate areas of ecchymosis, stasis dermatitis in lower extremities HEAD: Normocephalic. Atraumatic. EYES: EOMI. No scleral icterus. No injection or drainage. ENT: No nasal drainage. Moist mucous membranes. No oral ulcers or lesions. NECK: Supple, trachea midline. No JVD. CARDIOVASCULAR: Regular rate and rhythm without murmurs, rubs, or gallops. Peripheral pulses 2+. RESPIRATORY: Breath sounds clear to auscultation and equal bilaterally, without wheezes, rales, or rhonchi. No accessory muscle use. GASTROINTESTINAL: Abdomen soft, nontender in outer quadrants apart from central hematoma, nondistended, normal BS. No rebound tenderness. No guarding. MUSCULOSKELETAL: 1+ bilateral lower extremity edema. Normal range of motion. Mild tenderness in calf upon palpation. Negative ascencion's sign. BACK: Nontender without obvious deformity. (Katelin Brown MD R1) A/P Assessment and Plan Very pleasant 76 year old man with extensive PMH as above being admitted with umbilical hematoma and urinary retention. S/p I & D of umbilical hematoma with vac dressing placed. POD # 1. Discharge Planning Pending clinical improvement (Katelin Brown MD R1) Attending Attestation THIS CASE WAS DISCUSSED WITH THE RESIDENT PHYSICIAN,DR Ivone BROWN. I HAVE REVIEWED THE RECORD,PATIENT SEEN AND EXAMINED AND AGREE WITH THE ABOVE NOTE AND PLAN OF CARE WAS DISCUSSED. I HAVE AUTHORIZED THE ORDERS. (Lan Montgomery MD) Problem List: (1) Abdominal wall hematoma ICD Codes: S30.1XXA - Contusion of abdominal wall, initial encounter Status: Acute Plan: Abdomen/pelvis CT demonstrating ventral abdominal wall hematoma measuring 7.7 x 4.2 x 8.3 cm. s/p I & D of umbilical hematoma with vac dressing. POD# 1. General surgery consulted, patient known to Dr. Ordoñez Changed to PO ciprofloxacin 500mg q12hr (04/29-) Changed to PO Flagyl 500mg q8hr (04/29-) Vac to be changed Thursday 05/03 Dilaudid 0.5 mg IV q4h prn pain (2) Urinary retention ICD Codes: R33.9 - Retention of urine, unspecified Status: Acute Plan: Patient has known history of BPH as well as renal calculi Abdomen/pelvis CT showing marked distention of the urinary bladder suggestive of bladder outlet obstruction may be related to enlarged prostate; mild bilateral hydronephrosis, 8 mm bladder calculus, tiny bilateral nonobstructing renal calculi Remove Novak Catheter today and do voiding trial Continue Flomax 0.4mg PO HS daily (3) Hx pulmonary embolism ICD Codes: Z86.711 - Personal history of pulmonary embolism Status: Chronic Plan: B/l US of lower extremities 05/01 demonstrated non-occlusive thrombosis in left popiteal vein Continue Warfarin 6mg PO daily @ 1600 Continue Lovenox 40mg SQ BID this evening INR 1.5 12/15 INR ordered for tomorrow Monitor for signs of bleeding after resuming (4) JUVE (acute kidney injury) ICD Codes: N17.9 - Acute kidney failure, unspecified Status: Acute Plan: Cr 1.82, baseline ~1.0 BUN 35, BUN/Cr ratio within normal limits Improving Likely postrenal due to outlet obstruction likely from BPH Patient follows with Dr. Michelle his urologist Consider urology consult if urinary symptoms do not improve following removal of Novak (5) Anemia ICD Codes: D64.9 - Anemia, unspecified Status: Acute Plan: Hgb 11.2 on admission Stable Continue to trend (6) Hypertension ICD Codes: I10 - Essential (primary) hypertension Status: Chronic Plan: Monitor vitals q4h Not on any home antihypertensives Clonidine 0.1 mg po q6h prn BP > 180/100 Hydralazine 10 mg IV q4h prn BP > 160/90 (7) GERD (gastroesophageal reflux disease) ICD Codes: K21.9 - Gastro-esophageal reflux disease without esophagitis Status: Chronic Plan: Protonix 40 mg po daily (8) Nutrition, metabolism, and development symptoms ICD Codes: R63.8 - Other symptoms and signs concerning food and fluid intake Status: Acute Plan: Fluids: none Electrolytes: WNL, continue to monitor Nutrition: Heart Healthy Diet DVT ppx: b/l SCDs, restart chemical anticoagulation 24 hours after postop GI ppx: Protonix (9) Leukocytosis ICD Codes: D72.829 - Elevated white blood cell count, unspecified Status: Resolved Plan: now resolved. (Katelin Brown MD R1) Problem Qualifiers (1) Abdominal wall hematoma: Qualified Codes: S30.1XXA - Contusion of abdominal wall, initial encounter Katelin Brown MD R1 May 02, 2017 10:17 Lan Montgomery MD May 04, 2017 21:17
--- NOTE | 2017-05-02 10:17 | HHI.PR ---
Subjective Subjective Notes feels fine, wants lane out. no complaints Objective Vitals/I&O Vital Signs Date Time Temp Pulse Resp B/P (MAP) Pulse Ox O2 Delivery O2 Flow Rate FiO2 05/02/17 08:19 98 21 05/02/17 08:00 97.2 64 16 132/60 (84) 05/01/17 03:00 Nasal Cannula 2 Labs Laboratory Tests Test 05/02/17 07:27 White Blood Count 7.9 Red Blood Count 3.67 Hemoglobin 10.7 Hematocrit 32.5 Mean Corpuscular Volume 88.4 Mean Corpuscular Hemoglobin 29.2 Mean Corpuscular Hemoglobin Concent 33.0 Red Cell Distribution Width 15.9 Platelet Count 153 Mean Platelet Volume 7.8 Blood Urea Nitrogen 20 Creatinine 1.06 Random Glucose 105 Calcium Level 8.7 Sodium Level 138 Potassium Level 3.6 Chloride Level 105 Carbon Dioxide Level 25.5 Anion Gap 8 Estimat Glomerular Filtration Rate 68 Abdomen: Non-distended, Post-op tenderness Wound Wound : Wound Location: Abdomen Appearance: Clean & Dry Dressing: VAC A/P Assessment and Plan s/p drainage umbilical hematoma s/p hernia repair will try to DC lane today plan VAC change Wednesday and DC depending on how it looks. can change to PO ABX in anticipation of DC pt agrees. Kyler Singh MD May 02, 2017 10:17
[2017-05-02 13:13] LABS: INTERNATIONAL NORMALIZED RATIO 1.3 RATIO; PROTHROMBIN TIME - PATIENT 13.1 SEC (9.8-11.6)
[2017-05-02] MEDS: WARFARIN SOD 6 MG TAB PO SCH (15:55)
[2017-05-02] MEDS: metroNIDAZOLE 500 MG TAB PO SCH ×2 (15:55→21:17)
[2017-05-02] MEDS ORDERED: WARFARIN SOD 1 MG TAB PO SCH (16:00)
[2017-05-02] MEDS: TAMSULOSIN HCL 0.4 MG CAP PO SCH (21:17)
[2017-05-02] MEDS: CIPROFLOXACIN 500 MG TAB PO SCH (21:17)
[2017-05-02] MEDS: HYDROmorphone HCL PF 2 MG/ML VIAL IV PUSH PRN (21:22)
[2017-05-03] VITALS: BP 131/67; PULSE 80; RESP 20; TEMP 96.3; O2SAT 97
[2017-05-03 04:27] VITALS: BP 146/77; PULSE 73
[2017-05-03] MEDS: metroNIDAZOLE 500 MG TAB PO SCH ×2 (04:46→14:38)
[2017-05-03 06:28] LABS: HEMATOCRIT 32.4 % (39.0-51.0); MEAN CELL VOLUME 88.7 FL (80.0-100.0); MEAN CORPUSCULAR HEMOGLOBIN 29.3 PG (27.0-34.0); PLATELET COUNT 151 TH/MM3 (150-450); RED BLOOD COUNT 3.66 MIL/MM3 (4.50-5.90); RED CELL DISTRIBUTION WIDTH 15.8 % (11.6-17.2); REVIEW FLAG FINAL; WHITE BLOOD COUNT 7.9 TH/MM3 (4.0-11.0)
[2017-05-03 06:47] LABS: INTERNATIONAL NORMALIZED RATIO 1.2 RATIO; PROTHROMBIN TIME - PATIENT 12.6 SEC (9.8-11.6)
[2017-05-03 06:50] LABS: POTASSIUM 3.6 MEQ/L (3.5-5.1)
[2017-05-03 08:00] VITALS: BP 155/72; PULSE 66; RESP 17; TEMP 96; O2SAT 99
[2017-05-03 08:15] VITALS: PULSE 72
--- NOTE | 2017-05-03 09:02 | HHI.FF ---
Face to Face Verification Diagnosis: (1) Hematoma Home Health Nursing Order: Wound care and dressing changes Instructions: Wound Vac change 125 mg Continuous --plan to change in office on --- patient to bring own supplies in; Nurse to check Wound Vac I have seen patient Robb Bolton on 05/03/17. My clinical findings support the need for the requested home health care services because: Limited ability to care for self High risk of falls I certify that my clinical findings support that this patient is homebound because: Post-op weakness More Mcdonald May 03, 2017 09:02
--- NOTE | 2017-05-03 09:46 | HHI.PR ---
Subjective Subjective Notes Pain tolerable Eager to get home Objective Vitals/I&O Vital Signs Date Time Temp Pulse Resp B/P (MAP) Pulse Ox O2 Delivery O2 Flow Rate FiO2 05/03/17 08:00 96.0 66 17 155/72 (99) 99 05/02/17 08:19 21 05/01/17 03:00 Nasal Cannula 2 Labs Laboratory Tests Test 05/02/17 12:31 05/03/17 05:51 Prothrombin Time 13.1 12.6 Prothromb Time International Ratio 1.3 1.2 White Blood Count 7.9 Red Blood Count 3.66 Hemoglobin 10.7 Hematocrit 32.4 Mean Corpuscular Volume 88.7 Mean Corpuscular Hemoglobin 29.3 Mean Corpuscular Hemoglobin Concent 33.0 Red Cell Distribution Width 15.8 Platelet Count 151 Mean Platelet Volume 7.8 Blood Urea Nitrogen 19 Creatinine 1.13 Random Glucose 102 Calcium Level 8.4 Sodium Level 139 Potassium Level 3.6 Chloride Level 104 Carbon Dioxide Level 28.0 Anion Gap 7 Estimat Glomerular Filtration Rate 63 Cardiovascular: Regular Lungs: Clear Abdomen: Other (Wound Vac removed--- wound with some minimal old blood --- cleaned out with saline and 4x4; Wound Vac reapplied ) Extremities: No edema A/P Assessment and Plan 76 year old male s/p UHR ---taken back to OR for I&D of hematoma -Wound Vac changed today ---plan to change in the office -Pain control -Regular diet -Appt set for May 06 at 11:30AM to change Wound Vac -Face to face complete and Wound Vac form complete with measurements from today -Discussed with More Ulrich May 03, 2017 09:46
[2017-05-03] MEDS: PANTOPRAZOLE SOD 40 MG DELAYED RELEASE TAB PO SCH (09:48)
[2017-05-03] MEDS: CIPROFLOXACIN 500 MG TAB PO SCH (09:48)
[2017-05-03] MEDS: DOCUSATE SODIUM 50 MG/SENNA 8.6 MG TAB PO SCH (09:48)
[2017-05-03] MEDS: ENOXAPARIN SODIUM 40 MG/0.4 ML SYRINGE SQ SCH (09:48)
[2017-05-03] MEDS: SODIUM CHLORIDE 0.9% FLUSH 10 ML FLUSH IV FLUSH SCH (09:49)
--- NOTE | 2017-05-03 10:51 | HHI.FPPN ---
Subjective Remarks Patient seen and examined this more. States he's been having difficulties voiding urine. Reports he had to be cathetered twice last night. He has been drinking plan fluids, coffee, juices and is going to attempt to urinate again this morning. He notes he does have some abdominal pain but is unable to discern if it's due to his bladder or from his recent surgery. Unable to discern if he has abdominal fullness at this time. Patient reports that following a past surgery at another hospital he had this similar situation. He is unable to urinate for several days after that surgery. No nausea, vomiting, fever, chills, back pain, chest pain, difficulty passing bowel movements. No other complaints. Objective Vitals Vital Signs Date Time Temp Pulse Resp B/P (MAP) Pulse Ox O2 Delivery O2 Flow Rate FiO2 05/03/17 08:00 96.0 66 17 155/72 (99) 99 05/03/17 04:27 73 146/77 (100) 05/03/17 00:00 96.3 80 20 131/67 (88) 97 05/02/17 21:43 18 05/02/17 21:22 98.1 57 18 147/65 (92) 99 05/02/17 16:00 97.3 73 16 126/60 (82) 99 05/02/17 12:00 97.0 80 16 142/67 (92) 99 I/O 05/02/17 05/02/17 05/02/17 05/03/17 05/03/17 05/03/17 07:00 15:00 23:00 07:00 15:00 23:00 Intake Total 240 ml 600 ml Output Total 1950 ml 850 ml 900 ml Balance -1710 ml -250 ml -900 ml Intake Oral 240 ml 600 ml Output Urine Total 1950 ml 850 ml 900 ml Drainage Total 0 ml Bladder Scan Volume Amount 44 ml 275 ml 444 ml 500 ml 200 ml 500 ml # Voids 0 # Bowel Movements 0 Result Diagram: 05/03/1751 05/03/17 0551 Objective Remarks GENERAL: NAD, very pleasant NEURO: Alert, awake, oriented x 3 SKIN: Vac dressing applied to abdomen, moderate areas of ecchymosis, stasis dermatitis in lower extremities HEAD: Normocephalic. Atraumatic. EYES: EOMI. No scleral icterus. No injection or drainage. ENT: No nasal drainage. Moist mucous membranes. No oral ulcers or lesions. NECK: Supple, trachea midline. No JVD. CARDIOVASCULAR: Regular rate and rhythm without murmurs, rubs, or gallops. Peripheral pulses 2+. RESPIRATORY: Breath sounds clear to auscultation and equal bilaterally, without wheezes, rales, or rhonchi. No accessory muscle use. GASTROINTESTINAL: Abdomen soft, nontender in outer quadrants apart from central hematoma, nondistended, normal BS. No rebound tenderness. No guarding. MUSCULOSKELETAL: 1+ bilateral lower extremity edema. Normal range of motion. Mild tenderness in calf upon palpation. BACK: Nontender without obvious deformity. A/P Assessment and Plan Very pleasant 76 year old man with extensive PMH as above being admitted with umbilical hematoma and urinary retention. S/p I & D of umbilical hematoma with vac dressing placed. POD # 2. Discharge Planning Pending clinical improvement and surgical clearance Problem List: (1) Abdominal wall hematoma ICD Codes: S30.1XXA - Contusion of abdominal wall, initial encounter Status: Acute Plan: Abdomen/pelvis CT demonstrating ventral abdominal wall hematoma measuring 7.7 x 4.2 x 8.3 cm. s/p I & D of umbilical hematoma with vac dressing. POD#2. General surgery consulted, patient known to Dr. Ordoñez Changed to PO ciprofloxacin 500mg q12hr (04/29-) Changed to PO Flagyl 500mg q8hr (04/29-) Vac to be changed Thursday 05/03 Dilaudid 0.5 mg IV q4h prn pain (2) Urinary retention ICD Codes: R33.9 - Retention of urine, unspecified Status: Acute Plan: Patient has known history of BPH as well as renal calculi. Past history of urinary retention for several days following abdominal surgery. Novak catheter removed 05/02, poorly tolerating. -Abdomen/pelvis CT showing marked distention of the urinary bladder suggestive of bladder outlet obstruction may be related to enlarged prostate; mild bilateral hydronephrosis, 8 mm bladder calculus, tiny bilateral nonobstructing renal calculi -Continued fluids, continuing to observe for micturition, will be assessed by nursing early this morning with possible bladder scan if continued retention. -Consider replacement of Novak catheter if continued retention -Continue Flomax 0.4mg PO HS daily (3) Hx pulmonary embolism ICD Codes: Z86.711 - Personal history of pulmonary embolism Status: Chronic Plan: B/l US of lower extremities 05/01 demonstrated non-occlusive thrombosis in left popiteal vein Continue Warfarin 6mg PO daily @ 1600 Continue Lovenox 40mg SQ BID this evening INR 1.2 05/03 has been decreasing every day INR ordered for tomorrow Monitor for signs of bleeding (4) JUVE (acute kidney injury) ICD Codes: N17.9 - Acute kidney failure, unspecified Status: Acute Plan: Cr 1.13, baseline ~1.0 BUN 35, BUN/Cr ratio within normal limits Improved Likely postrenal due to outlet obstruction likely from BPH Patient follows with Dr. Michelle his urologist Consider urology consult if urinary symptoms do not improve following removal of Novak (5) Anemia ICD Codes: D64.9 - Anemia, unspecified Status: Acute Plan: Hgb 11.2 on admission Stable Continue to trend (6) Hypertension ICD Codes: I10 - Essential (primary) hypertension Status: Chronic Plan: Monitor vitals q4h Not on any home antihypertensives Clonidine 0.1 mg po q6h prn BP > 180/100 Hydralazine 10 mg IV q4h prn BP > 160/90 (7) GERD (gastroesophageal reflux disease) ICD Codes: K21.9 - Gastro-esophageal reflux disease without esophagitis Status: Chronic Plan: Protonix 40 mg po daily (8) Nutrition, metabolism, and development symptoms ICD Codes: R63.8 - Other symptoms and signs concerning food and fluid intake Status: Acute Plan: Fluids: none Electrolytes: WNL, continue to monitor Nutrition: Heart Healthy Diet DVT ppx: b/l SCDs, restart chemical anticoagulation 24 hours after postop GI ppx: Protonix (9) Leukocytosis ICD Codes: D72.829 - Elevated white blood cell count, unspecified Status: Resolved Plan: now resolved. Problem Qualifiers (1) Abdominal wall hematoma: Qualified Codes: S30.1XXA - Contusion of abdominal wall, initial encounter Tony Powell MD R1 May 03, 2017 10:51
[2017-05-03 12:00] VITALS: BP 116/59; PULSE 75; PULSE 79; RESP 17; TEMP 98.1; O2SAT 98
[2017-05-03 16:00] VITALS: BP 118/59; PULSE 71; RESP 17; TEMP 98.5; O2SAT 98
[2017-05-03] MEDS ORDERED: COUM6TAB PO (16:32)
[2017-05-03] MEDS ORDERED: CIPR-9 PO (16:32)
[2017-05-03] MEDS ORDERED: METR-1 PO (16:32)
[2017-05-03] MEDS: WARFARIN SOD 6 MG TAB PO SCH (16:46)
[2017-05-03] MEDS ORDERED: DILA4TAB10 PO (17:05)
[2017-05-03] MEDS ORDERED: ENOX40P SQ (17:05)
== END 2017-05-03 17:29 | disposition home health service (06) | DRG 674 ==
LOC: NEPC 09:31 → NEDA 13:24 → N07A 14:47
PROVIDERS: ADMIT Family Medicine; ATTEND Family Medicine
PROC: 0WCG0ZZ Extirpation of Matter from Peritoneal Cavity, Open Approach (ICD-10-PCS; principal; 2017-05-01 01:13)
DX: N17.9 Acute kidney failure, unspecified (principal); D69.3 Immune thrombocytopenic purpura; D64.9 Anemia, unspecified; I10 Essential (primary) hypertension; I25.10 Atherosclerotic heart disease of native coronary artery without angina pectoris; N40.1 Benign prostatic hyperplasia with lower urinary tract symptoms; R33.8 Other retention of urine; D72.829 Elevated white blood cell count, unspecified; K21.9 Gastro-esophageal reflux disease without esophagitis; E78.5 Hyperlipidemia, unspecified; N21.0 Calculus in bladder; M10.9 Gout, unspecified; N13.30 Unspecified hydronephrosis; H35.30 Unspecified macular degeneration; F32.9 Major depressive disorder, single episode, unspecified; Z79.01 Long term (current) use of anticoagulants; Z86.711 Personal history of pulmonary embolism; Z88.0 Allergy status to penicillin; Z88.6 Allergy status to analgesic agent; Z86.718 Personal history of other venous thrombosis and embolism; Z95.1 Presence of aortocoronary bypass graft; Z95.2 Presence of prosthetic heart valve; Z96.651 Presence of right artificial knee joint
CPT/HCPCS: 36430; 51703; 74177; 80048; 80053; 81001; 83690; 85025; 85027; 85610; 85730; 86850; 86900; 86901; 86927; 93005; 93970; 96361; 96374; 96375; J0744; J1170; J1650; J2270; J2405; J3370; J7030; J7050; P9017; Q9967